=== PATIENT | male | born 1965 | race Caucasian/White ===

== ENCOUNTER 2018-03-27 01:56 | Outpatient (CLI) | payer OTHER, SELFPAY ==
[2018-03-27 08:53] LABS: Cholesterol 252 mg/dL (50-200); HDL Cholesterol 49 mg/dL (40-60); LDL CHOLESTEROL 178 mg/dL (<100); Triglyceride 118 mg/dL (30-150)
== END 2018-03-27 02:16 ==
PROVIDERS: PCP Internal Medicine; Visit Provider Internal Medicine
DX: E78.5 Hyperlipidemia, unspecified (principal)
CPT/HCPCS: 36415; 80061; 83721

== ENCOUNTER 2018-04-10 00:47 | Outpatient (CLI) | payer OTHER, SELFPAY ==
--- NOTE | 2018-04-10 09:01 | MERGE_ITS ---
*[facility]* *[facility]* [address] [place] [address] Date of study: 04/10/2018 Transthoracic Echocardiography M-mode, complete 2D, complete spectral Doppler, and color Doppler *STUDY CONCLUSIONS* Impressions: Bicuspid aortic valve with associated aortopathy. Summary: 1. Left ventricle: The cavity size was normal. Wall thickness was at the upper limits of normal. Systolic function was normal. The estimated ejection fraction was 60-65%. Wall motion was normal; there were no regional wall motion abnormalities. 2. Aortic valve: Bicuspid; mildly thickened leaflets. There was no stenosis. There was no significant regurgitation. 3. Aortic root: The aortic root was normal in size. 4. Ascending aorta: The ascending aorta was mildly dilated at 3.9 cm. 5. Aortic arch: The aortic arch was normal in size. 6. Descending aorta: The descending aorta was normal in size. There was no coarctation. 7. Right ventricle: The cavity size was normal. Wall thickness was normal. Systolic function was normal. *PATIENT PRESENTATION* Height: 172.7cm ((68in) ) S/D Pressure: 110 / 67 Weight: 77.1kg ((169.6lb) ) BSA: 1.94m^2 Test start time: 07:40 AM. Test stop time: 08:40 AM. ORDERING Santino Arce MD REFERRING Santino Arce MD PERFORMING Unknown PERFORMING [facility] SIGN MAINTENANCE RT Zenia (R)(JIN), [facility] *PROCEDURE DATA* Procedure information: The patient was identified by two identifiers. This study was interpreted by [facility]. Pertinent images and digital data are archived for permanent storage and are available for subsequent review. No prior study was available for comparison. Study status: Routine. Transthoracic echocardiography. M-mode, complete 2D, complete spectral Doppler, and color Doppler. A Transthoracic Echocardiogram was performed. Scanning was performed from the parasternal, apical, subcostal, and suprasternal notch acoustic windows. Images were obtained using an [id number] cardiac ultrasound machine. Image quality was adequate. Study completion: The patient tolerated the procedure well. There were no complications. History: PMH: Bicuspid Aortic valve. Congenital heart disease. *CARDIAC ANATOMY* Left ventricle: The cavity size was normal. Wall thickness was at the upper limits of normal. Systolic function was normal. The estimated ejection fraction was 60-65%. Wall motion was normal; there were no regional wall motion abnormalities. Diastolic parameters were normal. Aortic valve: Bicuspid; mildly thickened leaflets. Mobility was not restricted. Doppler: Transvalvular velocity was within the normal range. There was no stenosis. There was no significant regurgitation. VTI ratio of LVOT to aortic valve: 0.69. Valve area (VTI): 2.2cm^2. Indexed valve area (VTI): 1.1cm^2/m^2. Peak velocity ratio of LVOT to aortic valve: 0.72. Valve area (Vmax): 2.3cm^2. Indexed valve area (Vmax): 1.2cm^2/m^2. Mean velocity ratio of LVOT to aortic valve: 0.74. Valve area (Vmean): 2.3cm^2. Indexed valve area (Vmean): 1.2cm^2/m^2. Mean gradient (S): 5mm Hg. Peak gradient (S): 8.2mm Hg. Aorta: Aortic root: The aortic root was normal in size. Ascending aorta: The ascending aorta was mildly dilated at 3.9 cm. Aortic arch: The aortic arch was normal in size. Descending aorta: The descending aorta was normal in size. There was no coarctation. Mitral valve: Structurally normal valve. Mobility was not restricted. Doppler: Transvalvular velocity was within the normal range. There was no evidence for stenosis. There was trivial regurgitation. Valve area by pressure half-time: 4.1cm^2. Indexed valve area by pressure half-time: 2.1cm^2/m^2. Peak gradient (D): 4mm Hg. Left atrium: The atrium was normal in size. Right ventricle: The cavity size was normal. Wall thickness was normal. Systolic function was normal. Pulmonic valve: Structurally normal valve. Doppler: Transvalvular velocity was within the normal range. There was no evidence for stenosis. There was trivial regurgitation. Peak gradient (S): 3mm Hg. Tricuspid valve: Structurally normal valve. Doppler: Transvalvular velocity was within the normal range. There was no evidence for stenosis. There was trivial regurgitation. Pulmonary artery: Pulmonary systolic pressure was within the normal range, in the range of 20mm Hg to 25mm Hg. Right atrium: The atrium was normal in size. Pericardium: There was no pericardial effusion. Systemic veins: Inferior vena cava: Well visualized. The vessel was patent and normal in size. The respirophasic diameter changes were in the normal range (greater than or equal to 50%). Baseline ECG: Sinus bradycardia. Measurements Left ventricle Value Reference LV ID, ED, PLAX 4.6 cm 3.5 - 6.0 LV ID, ES, PLAX 3.4 cm 2.1 - 4.0 LV PW thickness, ED, PLAX 1.1 cm LV end-diastolic volume, 1-p A2C 105 ml LV ejection fraction, 1-p A2C 55 % LV end-diastolic volume, 1-p A4C 100 ml LV ejection fraction, 1-p A4C 65 % LV e', lateral 0.09 m/sec LV E/e', lateral 11 LV e', medial 0.094 m/sec LV E/e', medial 11 LV e', average 0.092 m/sec LV E/e', average 11 Ventricular septum Value Reference IVS thickness, ED, PLAX 1.0 cm LVOT Value Reference LVOT ID, A-P 2.0 cm LVOT area 3.2 cm^2 LVOT peak velocity, S 1.03 m/sec LVOT mean velocity, S 0.81 m/sec LVOT VTI, S 23.4 cm LVOT peak gradient, S 4.3 mm Hg LVOT mean gradient, S 2.8 mm Hg Stroke volume (SV), LVOT DP 74 ml Stroke index (SV/bsa), LVOT DP 38 ml/m^2 Aortic valve Value Reference Aortic valve peak velocity, S 1.4 m/sec Aortic valve mean velocity, S 1.09 m/sec Aortic valve VTI, S 34.0 cm Aortic mean gradient, S 5 mm Hg Aortic peak gradient, S 8.2 mm Hg VTI ratio, LVOT/AV 0.69 Aortic valve area, VTI 2.2 cm^2 Velocity ratio, peak, LVOT/AV 0.72 Aortic valve area, peak velocity 2.3 cm^2 Velocity ratio, mean, LVOT/AV 0.74 Aortic valve area, mean velocity 2.3 cm^2 Aortic valve area/bsa, mean velocity 1.2 cm^2/m^2 Aorta Value Reference Aortic root ID, ED 3.6 cm Ascending aorta ID, A-P, S 3.9 cm RVOT Value Reference RVOT VTI, S 17.6 cm Left atrium Value Reference LA ID, A-P, ES 2.6 cm LA ID/bsa, A-P 1.3 cm/m^2 <=2.2 LA area, ES, A4C 16 cm^2 8.8 - 23.4 LA area, ES, A2C 20 cm^2 LA volume/bsa, ES, 1-p A4C 23 ml/m^2 LA volume, ES, 2-p 49 ml LA volume/bsa, ES, 2-p 26 ml/m^2 LA/aortic root ratio 0.7 Mitral valve Value Reference Mitral E-wave peak velocity 1 m/sec Mitral A-wave peak velocity 0.73 m/sec Mitral deceleration time 183 ms 150 - 230 Mitral pressure half-time 53 ms Mitral peak gradient, D 4 mm Hg Mitral E/A ratio, peak 1.36 Mitral valve area, PHT, DP 4.1 cm^2 Pulmonary veins Value Reference Pulmonary vein peak velocity, S 0.54 m/sec Pulmonary vein peak velocity, D 0.6 m/sec Pulmonary vein velocity ratio, peak, 0.91 S/D Pulmonary vein A-wave reversal peak 0.36 m/sec velocity Tricuspid valve Value Reference Tricuspid regurg peak velocity 2.3 m/sec Tricuspid peak RV-RA gradient 21.3 mm Hg Right atrium Value Reference RA area, ES, A4C 17.5 cm^2 8.3 - 19.5 Pulmonic valve Value Reference Pulmonic peak gradient, S 3 mm Hg Legend: (L) and (H) hillary values outside specified reference range. I have personally reviewed the images and have reviewed and edited the reported findings. Electronically signed by Wilton Saleh 04/10/2018 10:31
== END 2018-04-10 01:07 ==
PROVIDERS: PCP Internal Medicine; Visit Provider Internal Medicine
DX: Q24.8 Other specified congenital malformations of heart (principal); Q23.1 Congenital insufficiency of aortic valve
CPT/HCPCS: 93306

== ENCOUNTER 2020-03-02 01:17 | Outpatient (CLI) | payer OTHER, SELFPAY ==
--- NOTE | 2020-03-02 13:50 | DI.US_ITS ---
APPROVED REPORT EXAM: Comprehensive 2D, Doppler, and color-flow Echocardiogram Patient Location: Out-Patient Pathologist Assistant: Sera Hitchcock RDCS (AE) Indications: Bicuspid Aortic Valve, Dil Ascending Aorta Other Information Study Quality: Good Conclusion Left Ventricle : The left ventricle is normal size. The left ventricular systolic function is normal. The left ventricular ejection fraction is within the normal range. There is normal left ventricular wall thickness. There is normal LV segmental wall motion. LVEF is 60%. Right Ventricle : The right ventricle is normal size. The right ventricular systolic function is norm al. The RVSP is 29.3 mmHg. Atria : The left atrium size is normal. The right atrium size is normal. Aortic Valve : Aortic valve is bicuspid. No aortic regurgitation is present. There is no aortic valvu lar stenosis. Great Vessels : The aortic root is normal in size. The ascending aorta is mildly dilated (3.9cm). Ao rtic arch is normal in caliber. The IVC collapses <50% with inspiration. Compared to study from 04/10/2018, there is no significant change. Wall motion Left Ventricle The left ventricle is normal size. The left ventricular systolic function is normal. The left ventric ular ejection fraction is within the normal range. There is normal left ventricular wall thickness. T here is normal LV segmental wall motion. The left ventricular diastolic function is normal. There is no ventricular septal defect visualized. LVEF is 60%. Right Ventricle The right ventricle is normal size. The right ventricular systolic function is normal. The RVSP is 29 .3 mmHg. Atria The left atrium size is normal. The right atrium size is normal. The interatrial septum is intact wit h no evidence for an atrial septal defect. Aortic Valve Aortic valve is bicuspid. There is no aortic valvular stenosis. No aortic regurgitation is present. Mitral Valve The mitral valve is normal in structure. No evidence of mitral valve stenosis. Mild mitral regurgitat ion. Tricuspid Valve The tricuspid valve is normal in structure. There is no tricuspid valve stenosis. Mild tricuspid regu rgitation. Pulmonic Valve The pulmonary valve is normal in structure. There is no pulmonic valvular stenosis. There is no pulmo nu valvular regurgitation. Great Vessels The aortic root is normal in size. The ascending aorta is mildly dilated (3.9cm). Aortic arch is norm al in caliber. The IVC collapses <50% with inspiration. Pericardium There is no pericardial effusion. 2D Dimensions IVSD d PLAX 0.82 cm M: 0.6-1.2 LV Vol A2C d MOD 120.1 mL LVPW d PLAX 0.82 cm M: 0.6 - 1.2 LV Vol A4C d MOD 92.7 mL LVID d PLAX 4.63 cm M: 4.2 - 5.8 LA vol/ BSA A2C s A-L 31.0 mL/m2 LVDs 3.20 cm M: 2.5 - 4.0 LA vol/ BSA A4C s A-L 15.0 mL/m2 Ao Root d 3.31 cm M: 3.1 - 3.7 LA Vol/ BSA Biplane s A-L 24.0 mL/m2 RA Area A4C 16.19 cm2 LA Area A4C s MOD 12.24 cm2 RA Vol/ BSA A4C s A-L 22.0 mL/m2 LA Area A2C s MOD 19.65 cm2 Ao Asc Diam d 3.94 cm M: 2.6 - 3.4 LV EF A4C MOD 59.1 % LV EF Teichholz 57.2 % LV EF A2C MOD 58.0 % LVEF (Partida's) 58.52 % M: 52 - 72 LV EF Biplane MOD 58.5 % LV Volume 81.37 mL M: 62 - 150 SV 62.21 mL LV Volume Index 43.28 mL/m2 M: 34 - 74 SV Index 33.03 mL/m2 LV Vol Biplane MOD 106.3 mL FS 29.90 % M-Mode TAPSE 3.05 cm (M/F) >1.7 LV Diastology MV E' medial 0.092 (>0.07 m/s) E/A Ratio 1.2 LV E/e MED 9.25 (<14) MV E Vmax 0.85 (0.4-1.3 m/s) MV E' lateral 0.105 (>0.1 m/s) MV A Vmax 0.70 (0.4-1.3 m/s) LV E/e LAT 8.05 (<14) MV E/A Ratio 1.18 MV E/E' medial 9.27 MV E/E' lateral 8.08 Aortic Valve LVOT Area 2.91 cm2 AoV Area Vmax 2.11 cm2 LVOT Vmax 1.18 m/s AoV Area/ BSA (Vmax) 1.12 cm2/m2 LVOT Mean Reed. 0.72 m/s MELECIO Mean Reed. 1.78 cm2 LVOT Peak Grad 5.6 mmHg MELECIO Mean Reed. Index 0.94 cm2/m2 LVOT Mean Grad 2.5 mmHg LVOT VTI 0.261 m LVOT Diam s 1.90 cm AoV Vmax 1.63 m/s Velocity Ratio 0.72 AoV Mean Reed. 1.19 m/s AoV Peak Grad 10.6 mmHg LVOT SV 75.97 mL AoV Mean Grad 6.0 mmHg AoV VTI 0.324 m AoV Area VTI 2.34 cm2 AoV Area/ BSA (VTI) 1.24 cm/m2 Mitral Valve MV DT 229 (160-240 msec) MV PHT 66 msec MV Area PHT 3.31 cm2 Pulmonary Valve PV Vmax 0.94 (0.5-1.5 m/s) RVOT Peak Gr. 2.69 mmHg PV Peak Grad 3.5 mmHg RVOT Mean Gr. 1.20 mmHg PV Mean Grad 1.9 mmHg RVOT VTI 0.179 m PV VTI 0.212 m RVOT Vmax 0.82 m/s Tricuspid Valve TR Peak Grad 21.3 mmHg TR Vmax 2.31 m/s RA Pressure 8.00 mmHg RVSP (TR) 29.3 mmHg
== END 2020-03-02 01:37 ==
PROVIDERS: PCP Internal Medicine; Visit Provider Internal Medicine
DX: I77.810 Thoracic aortic ectasia (principal)
CPT/HCPCS: 93306

== ENCOUNTER 2021-07-22 09:07 | Outpatient (REF) | payer OTHER, SELFPAY ==
[2021-07-22 13:56] LABS: Calculated LDL 198 mg/dL (<100); Cholesterol 263 mg/dL (<200); Glucose 97 mg/dL (74-106); HDL Cholesterol 54 mg/dL (40-60); Triglyceride 57 mg/dL (<150)
== END 2021-07-22 09:08 | disposition home or self-care (01) ==
LOC: NCHCN 09:07
PROVIDERS: PCP Internal Medicine; Visit Provider Family Medicine
DX: E78.5 Hyperlipidemia, unspecified (principal)
CPT/HCPCS: 80061; 82947

== ENCOUNTER 2021-08-24 15:55 | Outpatient (REF) | payer OTHER, SELFPAY ==
[2021-08-24 15:37] LABS: ALT 28 U/L (16-63); AST 22 U/L (15-37)
== END 2021-08-24 15:56 | disposition home or self-care (01) ==
LOC: NCHCN 15:55
PROVIDERS: PCP Internal Medicine; Visit Provider Family Medicine
DX: E78.5 Hyperlipidemia, unspecified (principal)
CPT/HCPCS: 84450; 84460

== ENCOUNTER 2022-03-04 10:13 | Outpatient (REF) | payer OTHER, SELFPAY ==
[2022-03-04 19:58] LABS: ALT 35 U/L (16-63); AST 27 U/L (15-37); Calculated LDL 112 mg/dL (<100); Cholesterol 173 mg/dL (<200); HDL Cholesterol 54 mg/dL (40-60); Triglyceride 39 mg/dL (<150)
== END 2022-03-04 10:14 | disposition home or self-care (01) ==
LOC: NCHCN 10:13
PROVIDERS: PCP Internal Medicine; Visit Provider Family Medicine
DX: E78.5 Hyperlipidemia, unspecified (principal)
CPT/HCPCS: 80061; 84450; 84460

== ENCOUNTER → 2022-05-02 01:35 | Outpatient (CLI) | payer OTHER, SELFPAY ==
--- NOTE | 2022-05-02 14:06 | DI.US_ITS ---
APPROVED REPORT EXAM: Comprehensive 2D, Doppler, and color-flow Echocardiogram Patient Location: Out-Patient [employer] Operator: Sera Hitchcock RDCS (AE) Indications: Bicuspid aortic valve, Ascending aorta dilation Other Information Study Quality: Good Conclusion Normal left ventricular wall thickness and chamber size. Estimated ejection fraction is 60%. Wall m otion is normal Normal right ventricular size and systolic function Both atria are normal in size The aortic valve is bicuspid. There is no aortic stenosis or regurgitation Dilated ascending aorta measuring 4.03 cm Normal estimated right ventricular systolic pressure 25 mmHg Wall motion Left Ventricle The left ventricle is normal size. The left ventricular systolic function is normal. The left ventric ular ejection fraction is within the normal range. There is normal left ventricular wall thickness. T here is normal LV segmental wall motion. There is no ventricular septal defect visualized. LVEF is 60 %. Right Ventricle The right ventricle is normal size. The right ventricular systolic function is normal. The RVSP is 25 .5mmHg. Atria The left atrium size is normal. The right atrium size is normal. The interatrial septum is intact wit h no evidence for an atrial septal defect. Aortic Valve Aortic valve is bicuspid. There is no aortic valvular stenosis. No aortic regurgitation is present. Mitral Valve The mitral valve is normal in structure. No evidence of mitral valve stenosis. Trace mitral regurgita tion. Tricuspid Valve The tricuspid valve is normal in structure. There is no tricuspid valve stenosis. Trace to mild tricu spid regurgitation. Pulmonic Valve The pulmonary valve is normal in structure. There is no pulmonic valvular stenosis. There is no pulmo nu valvular regurgitation. Great Vessels The aortic root is normal in size. The ascending aorta is moderately dilated. Aortic arch is normal i n caliber. IVC is normal in size and collapses >50% with inspiration. Pericardium There is no pericardial effusion. 2D Dimensions IVSD d PLAX 0.91 cm M: 0.6-1.2 LV Vol A2C d MOD 136.3 mL LVPW d PLAX 0.90 cm M: 0.6 - 1.2 LV Vol A4C d MOD 92.8 mL LVID d PLAX 4.53 cm M: 4.2 - 5.8 LA vol/ BSA A2C s A-L 32.9 mL/m2 LVDs 3.00 cm M: 2.5 - 4.0 LA vol/ BSA A4C s A-L 16.4 mL/m2 Ao Root d 3.39 cm M: 3.1 - 3.7 LA Vol/ BSA Biplane s A-L 24.8 mL/m2 RA Area A4C 16.46 cm2 LA Area A4C s MOD 12.68 cm2 RA Vol/ BSA A4C s A-L 24.3 mL/m2 LA Area A2C s MOD 19.18 cm2 Ao Asc Diam d 4.03 cm M: 2.6 - 3.4 LV EF A4C MOD 60.0 % LV EF Teichholz 61.9 % LV EF A2C MOD 60.1 % LVEF (Partida's) 60.30 % M: 52 - 72 LV EF Biplane MOD 60.3 % LV Volume 88.60 mL M: 62 - 150 SV 69.79 mL LV Volume Index 47.12 mL/m2 M: 34 - 74 SV Index 37.05 mL/m2 LV Vol Biplane MOD 115.7 mL FS 33.15 % M-Mode TAPSE 2.77 cm (M/F) >1.7 LV Diastology MV E' medial 0.110 (>0.07 m/s) E/A Ratio 1.3 LV E/e MED 7.10 (<14) MV E Vmax 0.78 (0.4-1.3 m/s) MV E' lateral 0.128 (>0.1 m/s) MV A Vmax 0.60 (0.4-1.3 m/s) LV E/e LAT 6.05 (<14) MV E/A Ratio 1.27 MV E/E' medial 7.11 MV E/E' lateral 6.08 Aortic Valve LVOT Area 3.55 cm2 AoV Area Vmax 2.42 cm2 LVOT Vmax 0.99 m/s AoV Area/ BSA (Vmax) 1.28 cm2/m2 LVOT Mean Reed. 0.68 m/s MELECIO Mean Reed. 2.39 cm2 LVOT Peak Grad 4.0 mmHg MELECIO Mean Reed. Index 1.27 cm2/m2 LVOT Mean Grad 2.2 mmHg LVOT VTI 0.227 m LVOT Diam s 2.10 cm AoV Vmax 1.46 m/s Velocity Ratio 0.67 AoV Mean Reed. 1.02 m/s AoV Peak Grad 8.5 mmHg LVOT SV 80.72 mL AoV Mean Grad 4.7 mmHg AoV VTI 0.316 m AoV Area VTI 2.56 cm2 AoV Area/ BSA (VTI) 1.36 cm/m2 Mitral Valve MV DT 228 (160-240 msec) MV PHT 66 msec MV Area PHT 3.33 cm2 MV VTI 0.381 m MV Area VTI 2.12 (4.0-6.0 cm2) Pulmonary Valve PV Vmax 1.06 (0.5-1.5 m/s) RVOT Peak Gr. 2.43 mmHg PV Peak Grad 4.5 mmHg RVOT Mean Gr. 1.05 mmHg PV Mean Grad 2.5 mmHg RVOT VTI 0.177 m PV VTI 0.225 m RVOT Vmax 0.78 m/s Tricuspid Valve TR Peak Grad 22.4 mmHg TR Vmax 2.37 m/s RA Pressure 3.00 mmHg RVSP (TR) 25.5 mmHg
== END ==
PROVIDERS: PCP Internal Medicine; Visit Provider Family Medicine
DX: I35.2 Nonrheumatic aortic (valve) stenosis with insufficiency (principal); I77.810 Thoracic aortic ectasia
CPT/HCPCS: 93306

== ENCOUNTER 2022-11-28 09:13 | Outpatient (REF) | payer OTHER, SELFPAY ==
[2022-11-28 16:12] LABS: ALT 49 U/L (16-63); AST 32 U/L (15-37); Albumin 4.2 g/dL (3.4-5.0); Alkaline Phosphatase 71 U/L (46-116); Anion Gap 4.4 mmol/L (3-11); BUN 15 mg/dL (7-18); Bilirubin, Total 1.1 mg/dL (0.2-1.0); CO2 31.6 mmol/L (21.0-32.0); CREATININE 0.7 mg/dL (0.70-1.30); Calculated LDL 109 mg/dL (<100); Chloride 102 mmol/L (98-107); Cholesterol 173 mg/dL (<200); Estimated GFR 108.14 (mL/min/1.73m2); Glucose 97 mg/dL (74-106); HDL Cholesterol 55 mg/dL (40-60); Potassium 5.3 mmol/L (3.5-5.1); Sodium 138 mmol/L (136-145); Triglyceride 49 mg/dL (<150)
== END 2022-11-28 09:14 | disposition home or self-care (01) ==
LOC: NCHCN 09:13
PROVIDERS: PCP Internal Medicine; Visit Provider Family Medicine
DX: E78.5 Hyperlipidemia, unspecified (principal); Z00.00 Encounter for general adult medical examination without abnormal findings
CPT/HCPCS: 80053; 80061; 85025

== ENCOUNTER → 2023-04-24 00:16 | Outpatient (CLI) | payer OTHER, SELFPAY ==
--- NOTE | 2023-04-24 | DI.US_ITS ---
APPROVED REPORT EXAM: Comprehensive 2D, Doppler, and color-flow Echocardiogram Patient Location: Out-Patient Naturopathic Doctor: Reg Barron RDCS (AE) Indications: Bicuspid aortic valve Conclusion Normal left ventricular wall thickness and chamber size. Ejection fraction is 60%. Wall motion is n ormal Normal right ventricular size and systolic function Both atria are normal in size Aortic valve is mildly sclerotic and bicuspid. There is no aortic stenosis, no aortic regurgitation There is no additional structural or hemodynamically significant valvular disease Dilated ascending aorta measuring 4.3 cm Estimated right ventricular systolic pressure is 21 mmHg Wall motion Left Ventricle The left ventricle is normal size. The left ventricular systolic function is normal. The left ventric ular ejection fraction is within the normal range. There is normal left ventricular wall thickness. T here is normal LV segmental wall motion. There is no ventricular septal defect visualized. LVEF is 60 %. Right Ventricle The right ventricle is normal size. The right ventricular systolic function is normal. The RVSP is 21 .0 mmHg. Atria The left atrium size is normal. The right atrium size is normal. The interatrial septum is intact wit h no evidence for an atrial septal defect. Aortic Valve Aortic valve is bicuspid. The Aortic valve is mildly sclerotic. There is no aortic valvular stenosis. No aortic regurgitation is present. Mitral Valve The mitral valve is normal in structure. No evidence of mitral valve stenosis. Trace mitral regurgita tion. Tricuspid Valve The tricuspid valve is normal in structure. There is no tricuspid valve stenosis. Mild tricuspid regu rgitation. Pulmonic Valve The pulmonary valve is normal in structure. There is no pulmonic valvular stenosis. There is no pulmo nu valvular regurgitation. Great Vessels Aortic root is mildly dilated. The ascending aorta is moderately dilated. Aortic arch is normal in c aliber. IVC is normal in size and collapses >50% with inspiration. Pericardium There is no pericardial effusion. 2D Dimensions IVSD d PLAX 0.82 cm M: 0.6-1.2 Ao Root d 4.26 cm M: 3.1 - 3.7 LVPW d PLAX 0.70 cm M: 0.6 - 1.2 Ao Asc Diam d 4.30 cm M: 2.6 - 3.4 LVID d PLAX 5.11 cm M: 4.2 - 5.8 LVDs 3.48 cm M: 2.5 - 4.0 LV EF Teichholz 59.6 % FS 31.87 % LV EDV (Teich) 124.5 mL LV ESV (Teich) 50.3 mL Stroke Vol Index (Teich) 39.47 M-Mode TAPSE 2.43 cm (M/F) >1.7 Auto EF LV EDV A4C 122.8 mL LV EDV A2C 148.6 mL LV EDV BP LV ESV A4C 52.3 mL LV ESV A2C 61.9 mL LV ESV BP LVEF(%) A4C 57.4 % LVEF(%) A2C 58.4 % LVEF(%) BP LV SV A4C 70.5 ml LV SV A2C 86.8 ml LV SV BP LV CO A4C 4.0 L/min LV CO A2C 19.2 L/min LV CO BP HR A4C 57.05 BPM HR A2C 220.85 BPM LV EDV Index (BP) LA Volume LA Length A4C 2.8 cm LA Length A2C LA Area A4C s 5.76 cm2 LA Area A2C s LA Vol A4C A-L 9.93 mL LA Vol A2C A-L LA Vol Biplane A-L LA Vol A4C MOD 8.8 mL LA Vol A2C MOD LA Vol BP MOD RA Volume RA Area A4C 5.5 cm2 RA ESV A4C (A-L) 9.0mL RA Vol/BSA A4C A-L RA Length A4C 2.8 cm RA ESV A4C (MOD) 8.0mL LV Diastology MV E' medial 0.100 (>0.07 m/s) MV E Vmax 0.94 (0.4-1.3 m/s) MV E/E' MED 9.41 (<14) MV A Vmax 0.70 (0.4-1.3 m/s) MV E' lateral 0.121 (>0.1 m/s) E/A Ratio 1.3 MV E/E' LAT 7.73 (<14) MV E' Average 0.110 m/s MV E/E'(average) 8.49 Aortic Valve AoV Vmax 1.60 m/s LVOT Vmax 1.16 m/s AoV Peak Grad 10.2 mmHg LVOT Peak Grad 5.4 mmHg AoV Area (Vmax) 2.56 cm2 LVOT VTI 0.275 m AoV VTI 0.393 m LVOT Mean Grad 3.1 mmHg AoV Mean Reed. 1.16 m/s LVOT SV 96.96 mL AoV Mean Grad 6.1 mmHg LVOT Diam s 2.10 cm AoV Area (VTI) 2.46 cm2 Velocity Ratio 0.73 Mitral Valve MV DT 214 (160-240 msec) Pulmonary Valve PV Vmax 0.99 (0.5-1.5 m/s) RVOT Vmax 0.59 m/s PV Peak Grad 3.9 mmHg RVOT Peak Gr. 1.4 mmHg PV Mean Reed 0.71 m/s RVOT VTI 0.137 m PV Mean Grad 2.3 mmHg RVOT Mean Gr. 0.7 mmHg Tricuspid Valve RA Pressure 3.00 mmHg TR Vmax 2.12 m/s TR Peak Grad 17.9 mmHg RVSP (TR) 21.0 mmHg
== END ==
PROVIDERS: PCP Internal Medicine; Visit Provider Family Medicine
DX: I35.0 Nonrheumatic aortic (valve) stenosis (principal)
CPT/HCPCS: 93306

== ENCOUNTER 2024-03-29 00:12 | Outpatient (CLI) | payer OTHER, SELFPAY ==
--- OUTSIDE RECORDS SUMMARY | 2024-03-29 00:14 | XMS_ITS | Encounter Summary ---
Author Organization [facility] Address [facility] [place] [address] Care Team Providers Care Director Regulatory Agency Name Role Phone Darryl Trevizo MD Primary Care Provider [phone] Reason for Visit * Reason Onset Date Comments Medication Refill 01/09/2023 Encounter Details Date Type Department Care Team (Late st Contact Info) Description 01/09/2023 Refill Dermatology at [facility] [address] [place] [address] Colleen Carvalho MD [facility] [address] [place] [address] Social History Tobacco Use Types Packs/Day Years Used Date Smoking Tobacco: Never Smokeless Tobacco: Never Sex and Gender Information Value Date Recorded Sex Assigned at Not on file Gender Identity Not on file Sexual Orientation Not on file documented as of this encounter Plan of Treatment Not on file documented as of this encounter Visit Diagnoses Not on filedocumented in this encounter Care Teams Director Regulatory Agency Relationship Specialty Start Date End Date Darryl Trevizo MD [address] [place] [address] PCP - General Emergency Medicine 06/07/21 documented as of this encounter
--- OUTSIDE RECORDS SUMMARY | 2024-03-29 00:14 | XMS_ITS | Encounter Summary ---
Author Organization [facility] Address [facility] [place] [address] Care Team Providers Care Solar Sales Manager Name Role Phone Darryl Trevizo MD Primary Care Provider [phone] Encounter Details Date Type Department Care Team (Late st Contact Info) Description 09/06/2021 3:30 PM EDT Procedure visit Dermatology at [facility] [address] [place] [address] Colleen Carvalho MD [facility] [address] FEL[address] [place] [address] Dysplastic nevus Social History Tobacco Use Types Packs/Day Years Used Date Smoking Tobacco: Never Smokeless Tobacco: Never Sex and Gender Information Value Date Recorded Sex Assigned at Not on file Gender Identity Not on file Sexual Orientation Not on file documented as of this encounter Patient Instructions * Patient Instructions* Oswald Farah, [facility] - 09/06/2021 4:05 PM EDT Post-Operative Instructions Wound care: The bandage applied today should remain dry and intact for approximately 48 hours. When it is time to remove the bandage, wash your hands, wet the area, and gently remove the dressing. Afterward perform the following daily wound care: Clean the wound with mild soap and warm water, and gently pat dry. Apply Vaseline, Aquaphor or another brand of plain petroleum jelly. Do NOT use peroxide or antibiotic ointment/cream (Neosporin or Bacitracin) on the wound. Cover the wound with a new bandage, such as non-stick Telfa pad and paper tape, or a Band-Aid. Repeat this regimen every day until your sutures are removed. A small amount of yellow drainage is part of the normal healing process. The wound is not considered healed until the drainage stops. It may take up to 3-4 weeks depending on the surgical site. Signsof infection include: increasing redness, drainage, swelling, tenderness, or pain. If you notice any of those symptoms, please contact the clinic. For bleeding or discomfort: If bleeding should occur, hold firm, constant pressure against the wound for 15- 20 minutes (with nopeeking). If bleeding continues, repeat for another 15-20 minutes. If that does not stop the bleeding, call the clinic or go to your local emergency department. For discomfort, you may take acetaminophen (Tylenol), according to package directions. For the first 48 hours, avoid aspirin and ibuprofen (Advil, Motrin), as they increase the risk of bleeding. After 48 hours, it is okay to switch to aspirin or ibuprofen as needed. Activity restrictions: It is important that you avoid strenuous and/or vigorous activities, heavy lifting (more than 5-10 pounds, the equivalent of 1 gallon of milk) and bending for a period of 3 weeks. Suture removal: The sutures should be removed in 12-14 days. Contact information: After 5 PM, and on weekends and holidays, please call the hospital at [phone] and ask for the Motorcycle Maker On-Call. Provider: Colleen Nair MD Supervisor Vegetable Farming: PILAR Weinberg documented in this encounter Progress Notes * Colleen Nair MD - 09/06/2021 3:30 PM EDT PATIENT: Terrance Mei : 1965 DATE OF SERVICE: 09/06/2021 PROCEDURE: Excision of dysplastic melanocytic nevus on left upper arm. Informed Consent Discussion: A discussion took place between the patient and me regarding the risks, benefits, alternatives, andrationale for the above named procedure. The patient understand(s) all of the above and has agreed to proceed with the procedure. 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 Local anesthesia consisting of 1% lidocaine, epinephrine 1:100,000 was used to infiltrate the skin. After adequate anesthesia was obtained, an incision with a No. 15 blade was made and the lesion was removed with a minimum of 4mm margins. Hemostasis was achieved. Wound edges were re-approximated in a layered fashion utilizing Vicryl 3-0 (size, suture) subcutaneous sutures and Prolene 3-0 (size, suture) superficial sutures. The patient tolerated the procedure well. A pressure dressing was placed. Specimen(s): Sent to dermatopathology. Complication(s): None. Estimated Blood Loss: Minimal Final wound length: 4.5cm All counts correct at the end of the procedure. Patient tolerated the procedure well. Impression/ Plan: Wound care was discussed and post-operative written instructions given to the patient. Return to clinic in 12-14 days for suture removal. Medications given: none Author: Colleen Nair MD 09/06/2021 5:25 PM * Colleen Nair MD - 09/06/2021 3:30 PM EDT Margins clear, left upper arm. No further treatment needed. Benign result released to pt with instructions to call if any questions. documented in this encounter Plan of Treatment Not on file documented as of this encounter Procedures Procedure Name Priority Date/Time Associated Diagnosis Comments SPECIMEN TO PATHOLOGY Routine 09/06/2021 5:19 PM EDT Dysplastic nevus SURGICAL PATHOLOGY REPORT Routine 09/06/2021 3:30 PM EDT documented in this encounter Results * Specimen to Pathology (09/06/2021 5:19 PM EDT) AP Specimen 09/06/2021 5:19 PM EDT 09/06/2021 5:19 PM EDT Narrative [facility] - 09/06/2021 5:19 PM EDT Specimen requisition ordered. ??Separate Pathology report to follow Colleen Carvalho MD PATHOLOGY/CYTOLOGY ORDERABLES [facility] [place] [address] * Surgical Pathology Report (09/06/2021 3:30 PM EDT) Final Diagnosis [id number] ? Location: [facility] The signing pathologist has (i) examined the relevant preparation(s) for the specimen(s) and (ii) rendered or confirmed the diagnosis(es). . ?Surgical Pathology DIAGNOSIS Left upper arm, skin excision: - ??Negative for atypical melanocytic proliferation - ??Reparative changes consistent with previous operative site - Background ??actinic keratosis-type changes Electronically signed by: ?Faustina Waggoner MD Verified: ??09/08/2021 17:31 ??Dermatopatholog ist Performed at: ??-[facility] Dept. of Pathology, [place], [place] SPECIMEN(S) SUBMITTED A - Left upper arm, skin excision (1) CLINICAL INFORMATION 7 mm x 3 mm biopsy proven dysplastic nevus with moderate atypia (see previous path [id number]) SPECIMEN PROCESSING A - Labeled/Fixative: Patient demographics, formalin. Quantity/Size: ??Single, 3.9 x 1.2 x 0.5 cm. Tissue Description: Non-oriented, wrinkled craven-goyal elliptical skin excision with a central 0.7 x 0.4 cm ovoid, slightly depressed glistening pink-red scar/previous biopsy site. Sections/Processi ng: Inked and entirely submitted in 4 cassettes as follows: ?A1: ??tips ?A2-A4: ??Body (A3 = previous biopsy site/scar). ??shb 09/08/2021 5:31 PM EDT [facility] SPECIMEN FROM SKIN / Unknown 09/06/2021 3:30 PM EDT 09/06/2021 3:30 PM EDT Colleen Carvalho MD PATHOLOGY/CYTOLOGY ORDERABLES Performing Organization Address City/State/[facility] Co de Phone Number [facility] [place] [address] documented in this encounter Visit Diagnoses Diagnosis Dysplastic nevus Benign neoplasm of skin, site unspecified documented in this encounter Care Teams Solar Sales Manager Relationship Specialty Start Date End Date Darryl Trevizo MD [address] [place] [address] PCP - General Emergency Medicine 06/07/21 documented as of this encounter
--- OUTSIDE RECORDS SUMMARY | 2024-03-29 00:14 | XMS_ITS | Encounter Summary ---
Author Organization [facility] Address [facility] [place] [address] Care Team Providers Care Biostatistician Name Role Phone Darryl Trevizo MD Primary Care Provider [phone] Reason for Visit * Reason Onset Date Comments Medication Refill 05/01/2023 Encounter Details Date Type Department Care Team (Late st Contact Info) Description 05/01/[address] [facility] [address] [place] [address] Colleen Carvalho MD [facility] DR FEL[address] [place] [address] Social History Tobacco Use Types Packs/Day Years Used Date Smoking Tobacco: Never Smokeless Tobacco: Never Sex and Gender Information Value Date Recorded Sex Assigned at Not on file Gender Identity Not on file Sexual Orientation Not on file documented as of this encounter Miscellaneous Notes * Telephone Encounter - Julienne Gibson LPN - 05/01/2023 8:07 AM EST Sent to incorrect pharmacy documented in this encounter Plan of Treatment Not on file documented as of this encounter Visit Diagnoses Not on filedocumented in this encounter Care Teams Biostatistician Relationship Specialty Start Date End Date Darryl Trevizo MD [address] [place] [address] PCP - General Emergency Medicine 06/07/21 documented as of this encounter
--- OUTSIDE RECORDS SUMMARY | 2024-03-29 00:14 | XMS_ITS | Encounter Summary ---
Author Organization [facility] Address [facility] [place] [address] Care Team Providers Care Automatic Casting Machine Operator Name Role Phone Darryl Trevizo MD Primary Care Provider [phone] Reason for Visit * Reason Onset Date Comments Medication Refill 04/27/2023 Encounter Details Date Type Department Care Team (Late st Contact Info) Description 04/27/2023 Refill Dermatology at [facility] [address] [place] [address] Colleen Carvalho MD [facility] [address] [place] [address] Social History Tobacco Use Types Packs/Day Years [...] on filedocumented in this encounter Care Teams Automatic Casting Machine Operator Relationship Specialty Start Date End Date Darryl Trevizo MD [address] [place] [address] PCP - General Emergency Medicine 06/07/21 documented as of this encounter
--- OUTSIDE RECORDS SUMMARY | 2024-03-29 00:14 | XMS_ITS | Clinical Summary ---
Author Organization [facility] [place] [address] Care Team Providers Care Electrophysiology Scientist Name Role Phone Darryl Trevizo MD Primary Care Provider [phone] Allergies No known active allergies Medications Medication Sig Dispensed Refills Start Date End Date Status multivitamin Capsule Take 1 capsule by mouth daily. Active ascorbic acid (VITAMIN C ORAL) Take by mouth. Acti ve acetaminophen (Tylenol) 500 mg Tablet Take 1,000 mg by mouth every 6 hours as needed for Pain. Active docosahexaenoic acid/epa (FISH OIL ORAL) Take by mouth. Active atorvastatin (Lipitor) 20 mg Tablet TAKE ONE TABLET BY MOUTH EVERY NIGHT 09/04/2021 Active triamcinolone (Kenalog) 0.1 % Ointment Apply topically to affected area(s) twice daily for up to 2 weeks. Take 1 week off and then repeat cycle as needed. 80 g 05/01/2023 Active Social History Tobacco Use Types Packs/Day Years Used Date Smoking Tobacco: Never Smokeless Tobacco: Never Sex and Gender Information Value Date Recorded Sex Assigned at Not on file Gender Identity Not on file Sexual Orientation Not on file Plan of Treatment Health Maintenance Due Date Last Done Comments CT Colonography 1965 Colonoscopy 1965 Colorectal Cancer Screening 1965 FIT DNA 1965 FIT 1965 Sigmoidoscopy (10 year) with FIT yearly 1965 Sigmoidoscopy 1965 HIV screen 1984 Hepatitis C Screening 1984 Hepatitis B vaccine (0-59 yrs) (1) 1985 Tetanus/Diphtheria/Pertussis Vaccines (1 - Tdap) 07/02 Zoster vaccine (1 of 2) 2016 Advance Directive 2021 Covid-19 Vaccine ( season) 2024 Influenza (Flu) vaccine (1 o f 1 - Influenza standard series) 02/18/2024 Care Teams Electrophysiology Scientist Relationship Specialty Start Date End Date Darryl Trevizo MD [address] [place] [address] PCP - General Emergency Medicine 06/07/21
--- OUTSIDE RECORDS SUMMARY | 2024-03-29 00:14 | XMS_ITS | Encounter Summary ---
Author Organization [facility] Address [facility] [place] [address] Care Team Providers Care Plate Maker Name Role Phone Darryl Trevizo MD Primary Care Provider [phone] Encounter Details Date Type Department Care Team (Late st Contact Info) Description 09/09/2021 Abstract Dermatology at [facility] [address] [place] [address] Colleen Carvalho MD [facility] DR FEL[address] [place] [address] Social History Tobacco Use Types Packs/Day Years [...] on filedocumented in this encounter Care Teams Plate Maker Relationship Specialty Start Date End Date Darryl Trevizo MD [address] [place] [address] PCP - General Emergency Medicine 06/07/21 documented as of this encounter
--- OUTSIDE RECORDS SUMMARY | 2024-03-29 00:14 | XMS_ITS | Encounter Summary ---
Author Organization [facility] Address [facility] [place] [address] Care Team Providers Care Hand Carver Name Role Phone Darryl Trevizo MD Primary Care Provider [phone] Encounter Details Date Type Department Care Team (Late st Contact Info) Description 07/07/2021 Telephone Dermatology at [facility] [address] [place] [address] Alysha Mariee LPN Social History Tobacco Use Types Packs/Day Years Used Date Smoking Tobacco: Never Smokeless Tobacco: Never Sex and Gender Information Value Date Recorded Sex Assigned at Not on file Gender Identity Not on file Sexual Orientation Not on file documented as of this encounter Miscellaneous Notes * Telephone Encounter - Alysha Mariee LPN - 07/07/2021 3:46 PM EST I spoke with Terrance and I updated him on his appt change for 09/06/2021 @ 3:00 PM arrival for a 3:30PM appt He will call if it is an issue when he gets closer to the time and day. documented in this encounter Plan of Treatment Not on file documented as of this encounter Visit Diagnoses Not on filedocumented in this encounter Care Teams Hand Carver Relationship Specialty Start Date End Date Darryl Trevizo MD [address] [place] [address] PCP - General Emergency Medicine 06/07/21 documented as of this encounter
--- OUTSIDE RECORDS SUMMARY | 2024-03-29 00:14 | XMS_ITS | Encounter Summary ---
Author Organization [facility] Address [facility] [place] [address] Care Team Providers Care Almond Grinder Name Role Phone Darryl Trevizo MD Primary Care Provider [phone] Encounter Details Date Type Department Care Team (Late st Contact Info) Description 09/03/2021 Telephone Dermatology at [facility] [address] [place] [address] Marleny Mariee LPN Social History Tobacco Use Types Packs/Day Years Used Date Smoking Tobacco: Never Smokeless Tobacco: Never Sex and Gender Information Value Date Recorded Sex Assigned at Not on file Gender Identity Not on file Sexual Orientation Not on file documented as of this encounter Miscellaneous Notes * Telephone Encounter - Marleny Mariee LPN - 09/03/2021 2:34 PM EDT 09/03/2021 @ 3:01 PM. Pt called back and we discussed the procedure and all questions answered. 09/03/2021 @ 2:38 PM. I called and l/m for a return call to discuss his procedure. Telephone Encounter Pre-Procedure Screening and Review Terrance Mei is a 56 y.o. male is scheduled for treatment of a moderate AN on the Left upperarm Review of Procedure(s) Discussed with patient this procedure, the risks of excision, including but not limited to the following: ?? Near term: pain, bleeding/hematoma, bruising, infection ?? Long-term: recurrence, nerve damage, cosmesis (scar, dyspigmentation, scar spread), and keloid/hypertrophic scar development. Discussed post-procedure wound care and recommended limitations in activities including curtailed aerobic activities and limited weight lifting to less than 10 lbs for approximately three weeks afterthe procedure to minimize risk for falling and/or disruption of the wound. For head wounds, do not recommend head gear for approximately three weeks after the procedure to minimize risk for disruption of the wound. Recommend patient be accompanied by someone to help drive home, if able. Patient understands sutures will be removed in 10-14 days; this can be done by this office but may be done by PCP, if the PCP is willing to do so. Patient verbally understands and elects to continue with planned procedure above. Pre-Procedure Review Blood thinner N Defibrillator or Pacemaker N Prosthetic devices/implants and dates N Take antibiotics prior to procedures N Allergies N Plan Patient to return for procedure above. Pre-Procedure Antibiotics: not required / N Note initiated by MARLENY MARIEE LPN documented in this encounter Plan of Treatment Not on file documented as of this encounter Visit Diagnoses Not on filedocumented in this encounter Care Teams Almond Grinder Relationship Specialty Start Date End Date Darryl Trevizo MD [address] [place] [address] PCP - General Emergency Medicine 06/07/21 documented as of this encounter
--- OUTSIDE RECORDS SUMMARY | 2024-03-29 00:14 | XMS_ITS | Encounter Summary ---
Author Organization [facility] Address [facility] [place] [address] Care Team Providers Care Phytopathology Teacher Name Role Phone Darryl Trevizo MD Primary Care Provider [phone] Encounter Details Date Type Department Care Team ([facility] st Contact Info) Description 01/23/2023 10:30 AM EDT Office Visit Dermatology at [facility] [address] [place] [address] Colleen Gill MD [facility] DR [facility] [place] [address] Kaci Dee, RN Dermatitis Social History Tobacco Use Types Packs/Day Years Used Date Smoking Tobacco: Never Smokeless Tobacco: Never Sex and Gender Information Value Date Recorded Sex Assigned at Not on file Gender Identity Not on file Sexual Orientation Not on file documented as of this encounter Progress Notes * Arvind Betts MD - 01/23/2023 10:30 AM EDT Images from the original note were not included. DEPARTMENT OF DERMATOLOGY Medical Dermatology Clinic Provider: Colleen Gill MD Patient's preferred name Terrance Preferred contact method for results [x]Phone: cell []myD-H []Letter Detailed phone message OK? Yes Are there any other people with whom we may discuss your care? No Past Medical History Date, location, treatment Melanoma No Dysplastic nevi 06/07/2021: left upper arm, AN with moderate atypia s/p excision 09/06/2021 SCC No BCC No AKs No UV Exposure & Protection Sun Protection: SPF 15+ Other relevant past medical history Family History Details Melanoma No NMSC No Other relevant family history No Social History Occupation: Hobbies: Other: Pre-Procedure Screening Details Allergy to lidocaine, epinephrine, Dermabond, chlorhexidine, or adhesives No Bleeding disorder or blood thinners No Pacemaker, defibrillator, deep brain stimulator, cochlear implant No History of Present Illness: Terrance Mei is a 57 y.o. Patient returns to clinic today for the following: Patient has erythematous itchy papules scattered throughout upper extremities, chest, back, and thighs. Ongoing. Topical steroid prescribed at last visit helps them resolve but new ones continue to occur. Last visit at Dermatology: 01/09/2023 Last visit with this provider: 01/09/2023 Medications: Reviewed in eD-H Allergies: Reviewed in eD-H Skin Examination: Focused skin examination of the arms, chest, back, thighs was normal with the exception of the findings below. Assessment/Plan #. Anastacio's Disease vs Pityrosporum Folliculitis vs papular eczema - Erythematous papules some witherosions on the forearms, upper back, and few on chest, upper thighs - Recommended a skin biopsy. After discussion of potential risks (scarring, bleeding, infection), patient agreed to proceed. - Patient denies known allergies to lidocaine and epinephrine. - Continue Rx triamcinolone (Kenalog) 0.1% ointment: Apply topically to affected area(s) twice daily for up to 2 weeks. Take 1 week off and then repeat cycle as needed. Procedure: Skin punch biopsy. Location: R medial knee Time of procedure: 10:59 AM Discussed indications for the procedure and expectations including risks and benefits. Verbal consent obtained. Time out performed. Skin prepped with alcohol. Local anesthesia with 1% xylocaine, 1/100,000 epinephrine. A 4 mm punch biopsy to the level of the subcutis was performed. Specimen submitted to Pathology. Wound closed with monofilament suture. There were no complications; patient tolerated the procedure well. Wound dressed. Post-procedure expectations (including discomfort management), wound care and activity restrictions reviewed. - Follow-up based on pathology results. - Suture removal: 10-14 days. Can have done closer to home. Figure 1 Photo(s) taken and charted with patient's verbal consent. Other: N/A RTC: PRN [x]Note routed to bilingual secretary []Recall placed in scheduling system []Appointment scheduled at checkout Patient seen in conjunction with: Arvind Betts MD Resident in Dermatology [facility] I performed the above scribed service and agree with the accuracy of the documentation in this encounter. Reviewed and signed by: Colleen Gill MD Dermatology [facility] * Colleen Gill MD - 01/23/2023 10:30 AM EDT I directly supervised the resident during this office visit. The resident physician presented the history and physical exam to me. I then saw and examined this patient with the resident. We reviewed the history and pertinent details and I confirmed the physical exam findings. I agree with the details of the history and physical exam as documented in the resident physician's note. Colleen Gill MD ([place]), FAAD Staff Physician [facility] Dermatology * Colleen Gill MD - 01/23/2023 10:30 AM EDT Called patient to discuss: Med list is atorvastatin, multivitamin, vitamin C, fish oil, tylenol occasionally, ibuprofen. He note he started atorvastatin about 1 year ago and otherwise takes ibuprofen ~weekly. Suggest stopping atorvastatin since pathology suggests a drug reaction. He asked about food as well and I suggested keeping a food/symptom diary to assess. We discussed it takes about 4-6 weeks to see an effect after stopping medication. He will contact his PCP about stopping atorvastatin and I asked him to let me know how it goes. documented in this encounter Miscellaneous Notes * Addendum Note - Colleen Gill MD - 01/23/2023 10:30 AM EDTAddended by: COLLEEN GILL on: 01/24/2023 07:43 AM Modules accepted: Level of Service documented in this encounter Plan of Treatment Not on file documented as of this encounter Procedures Procedure Name Priority Date/Time Associated Diagnosis Comments SPECIMEN TO PATHOLOGY Routine 01/23/2023 11:06 AM EDT Dermatitis SURGICAL PATHOLOGY REPORT Routine 01/23/2023 10:54 AM EDT documented in this encounter Results * Specimen to Pathology (01/23/2023 11:06 AM EDT) AP Specimen 01/23/2023 11:0 6 AM EDT 01/23/2023 11:06 AM EDT Narrative [facility] - 01/23/2023 11:06 AM EDT Specimen requisition ordered. ??Separate Pathology report to follow Colleen Gill MD PATHOLOGY/CYTOLOGY ORDERABLES Performing Organization Address City/State/[facility] Co de Phone Number [facility] [place] [address] * Surgical Pathology Report (01/23/2023 10:54 AM EDT) Final Diagnosis [id number] ? Location: [facility] The signing pathologist has (i) examined the relevant preparation(s) for the specimen(s) and (ii) rendered or confirmed the diagnosis(es). . ?Surgical Pathology DIAGNOSIS Right medial knee, skin punch biopsy: - Superficial and deep perivascular dermatitis with eosinophils and scattered neutrophils (see discussion) Electronically signed by: ?Laureen RUIZ, PhD, Teja Ma Verified: ??01/31/2023 17:42 ??Dermatopathologis t, Bone & Soft Tissue Pathologist Performed at: ??-[facility] Dept. of Pathology, [place] [address] Cylinder Head Assembler: Naila Rolle MD, FCAP, ??CLIA Certificate: [id number] DISCUSSION Sections demonstrate skin with minimal spongiosis. There is a moderately dense superficial and deep perivascular lymphocytic infiltrate with eosinophils and occasional neutrophils. The inflammation extends into the interstitium and subcutis. The histologic features, while non-specific, raise a differential that includes a dermal hypersensitivity reaction to an arthropod bite or drug. Similar findings may be seen in urticaria and in a resolving spongiotic dermatitis. Findings diagnostic of Anastacio disease or Pityrosporum folliculitis are not identified in this biopsy. Clinical correlation is recommended. ADDITIONAL STUDIES Multiple deeper levels were examined. No fungi are seen in PAS-reacted sections. SPECIMEN(S) SUBMITTED a - Right medial knee, skin punch (1) CLINICAL INFORMATION Walton's disease versus Pityrosporum folliculitis versus papular eczema: Erythematous papules some with erosions on the forearms, upper back, and few on chest, upper thighs and feet SPECIMEN PROCESSING A - Labeled/Fixative: Patient demographics, formalin. Quantity/Size: ??Single, 0.4 x 0.4 cm, excised to a depth of 0.6 cm. Tissue Description: Punch goyal-pink hairbearing skin. Sections/Processing : Bisected and entirely submitted in 1 cassette labeled A1. ??nrl 01/31/2023 5:42 PM EDT [facility] SPECIMEN FROM SKIN / Unknown 01/23/2023 10:54 AM EDT 01/23/2023 10:54 AM EDT Arvind Betts MD PATHOLOGY/CYTO LOGY ORDERABLES [facility] [place] [address] [facility] [place] [address] documented in this encounter Visit Diagnoses Diagnosis Dermatitis Contact dermatitis and other eczema, due to unspecified cause documented in this encounter Care Teams Phytopathology Teacher Relationship Specialty Start Date End Date Darryl Trevizo MD [address] [place] [address] (work) PCP - General Emergency Medicine 06/07/21 documented as of this encounter
--- OUTSIDE RECORDS SUMMARY | 2024-03-29 00:14 | XMS_ITS | Encounter Summary ---
Author Organization [facility] [place] [address] Care Team Providers Care Account Services Specialist Name Role Phone Darryl Trevizo MD Primary Care Provider Encounter Details Date Type Department Care Team (Latest Contact Info) Description 01/23/2023 Travel Social History Tobacco Use Types Packs/Day Years [...] on filedocumented in this encounter Care Teams Account Services Specialist Relationship Specialty Start Date End Date Darryl Trevizo MD [address] [place] [address] PCP - General Emergency Medicine 06/07/21 documented as of this encounter
--- OUTSIDE RECORDS SUMMARY | 2024-03-29 00:14 | XMS_ITS | Encounter Summary ---
Author Organization [facility] [place] [address] Care Team Providers Care Can Technician Name Role Phone Darryl Trevizo MD Primary Care Provider [phone] Encounter Details Date Type Department Care Team (Latest Contact Info) Description 09/06/2021 3:00 PM EDT Clinical Support Dermatology at [facility] [address] [place] [address] Colleen Carvalho MD [facility] DR [facility] [address] Visit for suture removal Social History Tobacco Use Types Packs/Day Years Used Date Smoking Tobacco: Never Smokeless Tobacco: Never Sex and Gender Information Value Date Recorded Sex Assigned at Not on file Gender Identity Not on file Sexual Orientation Not on file documented as of this encounter Progress Notes * Kaci Dee LPN - 09/06/2021 3:00 PM EDT Images from the original note were not included. Pre Procedure Nurse Intake: Provider: MD Terrance Kline is a 56 y.o. male presents to the clinic today for a procedure visit. Pre surgery Vital signs: No data found. Reviewed surgery expectations and after visit wound care instructions with patient. Patient verbalized understanding. Confirmed location with patient. Photo(s) were taken and charted with patient consent: Prepared patient for surgery. Kaci Dee LPN documented in this encounter Plan of Treatment Not on file documented as of this encounter Visit Diagnoses Diagnosis Visit for suture removal Encounter for removal of sutures documented in this encounter Care Teams Can Technician Relationship Specialty Start Date End Date Darryl Trevizo MD [address] [place] [address] PCP - General Emergency Medicine 06/07/21 documented as of this encounter
--- OUTSIDE RECORDS SUMMARY | 2024-03-29 00:14 | XMS_ITS | Encounter Summary ---
Author Organization [facility] [place] [address] Care Team Providers Care Tank Truck Milk Receiver Name Role Phone Darryl Trevizo MD Primary Care Provider [phone] Encounter Details Date Type Department Care Team ([facility] st Contact Info) Description 01/09/2023 9:45 AM EDT Office Visit Dermatology at [facility] [address] [place] [address] Colleen Carvalho MD [facility] [address] [place] [address] Dermatofibroma; Rosacea; Dermatitis Social History Tobacco Use Types Packs/Day Years Used Date Smoking Tobacco: Never Smokeless Tobacco: Never Sex and Gender Information Value Date Recorded Sex Assigned at Not on file Gender Identity Not on file Sexual Orientation Not on file documented as of this encounter Progress Notes * Colleen Carvalho MD - 01/09/2023 9:45 AM EDT Images from the original note were not included. DEPARTMENT OF DERMATOLOGY Medical Dermatology Clinic Provider: Colleen Carvalho MD Patient's preferred name Terrance Preferred contact [...] returns to clinic today for the following: - bumps on arms, abdomen, back, legs. First appeared ~ 2 months ago. Intermittently itchy. Uses dove soap. Denies using a lotion. Patient has tried hydrocortisone and benadryl which he reports not helpful. Denies starting any new medications. Last visit at Dermatology: 09/06/2021 Last visit with this provider: 09/06/2021 Medications: Reviewed in eD-H Allergies: Reviewed in eD-H Skin Examination: Focused skin examination of the face, back, chest, abdomen, upper and lower extremities was normal with the exception of the findings below. Assessment/Plan # Dermatitis: Ddx: Junedale's Disease vs Pityrosporum Folliculitis (less likely) vs papular eczema - Erythematous papules some with erosions on the forearms, upper back, and few on chest, upper thighs,and feet - Discussed treating empirically with topical steroid. - Offered biopsy, will defer at this time due to patient going away on vacation. - Start Rx triamcinolone (Kenalog) 0.1% ointment: Apply topically to affected area(s) twice daily for up to 2 weeks. Take 1 week off and then repeat cycle as needed. - Pt leaving from here to go to [place], he will call with his preferred pharmacy # Dermatofibroma - Firm papule, centrally raised and sclerotic, with peripheral hyperpigmentation and dimpling with lateral pressure on the left rodas - Discussed that these are benign fibrous (scar-like) areas that often occur after trauma, such as insect bites. No treatment necessary. # Rosacea / Sun exposure - Diffuse erythema and dilated telangiectasias on the central face. - Reviewed common triggers: alcohol, caffeine, exercise, spicy foods, sun exposure, and extreme temperatures. - Discussed treatment options, including topicals and cosmetic laser procedures. No quotes given. - Patient declined topical treatment at this time. Figure 1 Photo(s) taken and charted with patient's verbal consent. Other: N/A RTC: 2-3 weeks for f/u []Note routed to administrative secretary []Recall placed in scheduling system [x]Appointment scheduled at checkout Scribe attestation: PILAR Weinberg has performed the documentation for this encounter in the presence of and acting as a scribe for Colleen Carvalho MD. I performed the above scribed service and agree with the accuracy of the documentation in this encounter. Reviewed and signed by: Colleen Carvalho MD Dermatology [facility] documented in this encounter Plan of Treatment Not on file documented as of this encounter Visit Diagnoses Diagnosis Dermatofibroma Benign neoplasm of skin, site unspecified Rosacea Dermatitis Contact dermatitis and other eczema, due to unspecified cause documented in this encounter Care Teams Tank Truck Milk Receiver Relationship Specialty Start Date End Date Darryl Trevizo MD [address] [place] [address] PCP - General Emergency Medicine 06/07/21 documented as of this encounter
--- OUTSIDE RECORDS SUMMARY | 2024-03-29 00:14 | XMS_ITS | Encounter Summary ---
Author Organization [facility] [place] [address] Care Team Providers Care Push Bench Operator Helper Name Role Phone Darryl Trevizo MD Primary Care Provider [phone] Encounter Details Date Type Department Care Team ([facility] st Contact Info) Description 06/07/2021 10:30 AM EST Office Visit Dermatology at [facility] [address] [place] [address] Colleen Carvalho MD [facility] [address] FEL[facility] [place] [address] Mercado angioma; Lentigines; Multiple benign nevi of upper extremity, lower extremity, and trunk; Actinic keratosis; Anastacio's disease; Neoplasm of unspecified behavior of bone, soft tissue, and skin Social History Tobacco Use Types Packs/Day Years Used Date Smoking Tobacco: Never Smokeless Tobacco: Never Sex and Gender Information Value Date Recorded Sex Assigned at Not on file Gender Identity Not on file Sexual Orientation Not on file documented as of this encounter Progress Notes * Colleen Miller MD - 06/07/2021 10:30 AM EST Images from the original note were not included. DEPARTMENT OF DERMATOLOGY Medical Dermatology Clinic Provider: Colleen Miller MD Patient's preferred name Terrance Preferred contact method for results [x]Phone: cell []myD-H []Letter Detailed phone message OK? Yes Are there any other people with whom we may discuss your care? No Past Medical History Date, location, treatment Melanoma No Dysplastic nevi No SCC No BCC No AKs No UV [...] of Present Illness: Terrance Mei is a 55 y.o. Patient is new and self-referred to the clinic for a full skin cancer screening: -flakey area on right forehead present for 1 year +. Asymptomatic. No previous treatment. -bumps on right abdomen present for 1 year +. Asymptomatic. No previous treatment. Medications: Reviewed in eD-H Allergies: Reviewed in eD-H Skin Examination: Full skin examination: Patient asked to undress to their comfort level. Verbalized that the provider's preference is that patient remove all clothing and that the provider will not examine areas patient elects to keep covered. Examination of the scalp, hair, head, face, ears, neck, chest, axillae, abdomen, back, buttocks, and upper and lower extremities was normal with the exception of the findings below. Genitalia not examined. Assessment/Plan # Neoplasm of unspecified behavior - Joint decision to proceed with biopsy for diagnostic clarification - Procedure: Skin shave biopsy Location: left upper arm DDX: Nevus vs atypical nevus- 5 mm reticule brown macule with asymmetrical border on left upper arm The patient's verbal consent for shave biopsy was obtained. Risk of incomplete removal, recurrence,bleeding, scar, and pain reviewed. Alcohol preparation was used. Anesthesia obtained with 1% lidocaine with epinephrine. A shave biopsy was obtained and the specimen was sent to pathology for histologic evaluation. Vaseline and bandage were applied. Wound care was reviewed. # Actinic Keratosis-0.2-0.3cm scaly irregular pink papule(s) on the left nasal sidewall x1 - Discussed the natural history and etiology of actinic keratoses including the premalignant potential of these lesions. -Discussed treatment options. Procedure Note: Procedure: Destruction of lesion(s) with cryotherapy. Number: 1 Location: as above Discussed procedure and expectations including risks (including risk of hypopigmentation) and benefits. Verbal consent obtained. Frozen with LN2, 15-30 second thaw time, TWICE. There were no complications; the patient tolerated the procedure well. Post-procedure expectations and wound care were reviewed. # Seborrheic keratoses - goyal/brown waxy stuck-on papules and plaques on the face, trunk and extremities. Including forehead. - Reassured of the benign nature of these lesions - No treatment needed # Mercado angiomas - scattered on the trunk and extremities are bright red smooth papules. - Reassured of the benign nature of these lesions. No treatment needed. # Solar lentigines - 0.3-0.6cm light-brown evenly pigmented, well-demarcated macules in a photodistributed pattern on the face, trunk and extremities. - Recommend diligent sun protection (hats/shade/clothing/sunscreen) - Discussed warning signs of skin cancer # Melanocytic nevi - Scattered medium-brown macules and papules on the head, trunk, and extremities. - Reassured of benign appearance on exam today. 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 The disease is found primarily in middle-aged to elderly white men - High-potency topical corticosteroids with combination of a vitamin D analog can be used Plan: -Monitor -Use OTC hydrocortisone cream as needed. Offered prescription but pt declines Images Photo(s) taken by Colleen Miller MD. with patient's verbal permission for use for clinical and education purposes. Other: ??? Sun protection discussed (protective clothing and SPF30+ broad-spectrum sunscreen) RTC: 1 year FSE []Note routed to police department secretary [x]Recall placed in scheduling system []Appointment scheduled at checkout Scribe attestation: Kaci Dee LPN has performed the documentation for this encounter in the presence of and acting as a scribe for Colleen Miller MD. I performed the above scribed service and agree with the accuracy of the documentation in this encounter. Reviewed and signed by: Colleen Miller MD Dermatology [facility] * Colleen Miller MD - 06/07/2021 10:30 AM EST Left upper arm, moderate AN, extending to peripheral and deep margins. Recommend excision. Alysha, can you please let him know? Thanks! * Alysha Mariee LPN - 06/07/2021 10:30 AM EST Called and l/m with details for pt on his cell # as it showed ok to in the chart note. I asked him to return a call to schedule and discuss an questions. * Alysha Mariee LPN - 06/07/2021 10:30 AM EST Spoke with Chin. HE was updated on his AN and was given an appt for 08/23/2021 but he would like to push it out. He will wait for Jackie to call and see if it can be changed. documented in this encounter Plan of Treatment Not on file documented as of this encounter Procedures Procedure Name Priority Date/Time Associated Diagnosis Comments SURGICAL PATHOLOGY REPORT Routine 06/07/2021 11:10 AM EST SPECIMEN TO PATHOLOGY Routine 06/07/2021 11:10 AM EST Neoplasm of unspecified behavior of bone, soft tissue, and skin documented in this encounter Results * Surgical Pathology Report (06/07/2021 11:10 AM EST) Final Diagnosis [id number] ? Location: [facility] The signing pathologist has (i) examined the relevant preparation(s) for the specimen(s) and (ii) rendered or confirmed the diagnosis(es). . ?Surgical Pathology DIAGNOSIS Left upper arm, skin shave biopsy: - ??Lentiginous compound dysplastic ??melanocytic ??nevus with moderate junctional atypia and ??features of congenital onset, extending to the peripheral and deep specimen edges Electronically signed by: ?Joey RUIZ, PhD, Antonette Verified: ??06/20/2021 12:28 ??Dermatopathologist Performed at: ??-[facility] Dept. of [place]ology, [place], [place] ADDITIONAL STUDIES Immunohistochemistry Studies: Formalin-fixed, paraffin-embedded tissue sections are studied using the polymer technique with appropriate positive and negative controls. ?These IHC studies provide the pathologist with adjunctive diagnostic information. Antibody specificity has been verified by testing antibodies on a series of in-house tissues with known immunohistochemical performance characteristics. The clinical interpretation of any antibody positive staining or its absence is evaluated within the context of clinical presentation, morphology, histopathological criteria and other diagnostic tests. Block ? Antibody ?Result (Positive/Negative) A1 ? Melan-A red ?Highlights ?? melanocytes A1 ? PRAME red ?Negative SPECIMEN(S) SUBMITTED A - left upper arm, skin shave biopsy (1) CLINICAL INFORMATION 5 mm reticulated brown macule with asymmetrical borders on left upper arm. DDX: Nevus vs atypical nevus SPECIMEN PROCESSING A - Labeled/Fixative: Patient demographics, formalin. Quantity/Size: ??Single, 0.8 x 0.7 cm. Tissue Description: Ovoid, nonoriented white skin shave of a 0.7 x 0.4-0.2 cm irregular dark brown macule. Sections/Processing: Inked, trisected and entirely submitted in 1 cassette labeled A1. ??shb 06/20/2021 12:28 PM EST [facility] SPECIMEN FROM SKIN / Unknown 06/07/2021 11:10 AM EST 06/07/2021 11:10 AM EST Colleen Carvalho MD PATHOLOGY/CYTOLOGY ORDERABLES Performing Organization Address City/[facility]/[place]IP [place] [address] * Specimen to Pathology (06/07/2021 11:10 AM EST) AP Specimen 06/07/2021 11:1 0 AM EST 06/07/2021 11:10 AM EST Narrative [facility] - 06/07/2021 11:10 AM EST Specimen requisition ordered. ??Separate Pathology report to follow Colleen Carvalho MD PATHOLOGY/CYTOLOGY ORDERABLES Performing Organization Address City/[facility] [place] [address] documented in this encounter Visit Diagnoses Diagnosis Mercado angioma Nevus, non-neoplastic Lentigines Other dyschromia Multiple benign nevi of upper extremity, lower extremity, and trunk Actinic keratosis Anastacio's disease Other specified dermatoses Neoplasm of unspecified behavior of bone, soft tissue, and skin documented in this encounter Care Teams Push Bench Operator Helper Relationship Specialty Start Date End Date Darryl Trevizo MD [address] [place] [address] PCP - General Emergency Medicine 06/07/21 documented as of this encounter
--- OUTSIDE RECORDS SUMMARY | 2024-03-29 00:14 | XMS_ITS | Encounter Summary ---
Author Organization [facility] [place] [address] Care Team Providers Care Licensed Life And Health Agent Name Role Phone Darryl Trevizo MD Primary Care Provider [phone] Encounter Details Date Type Department Care Team (Latest Contact Info) Description 01/08/2023 Travel Social History Tobacco Use Types Packs/Day [...] on filedocumented in this encounter Care Teams Licensed Life And Health Agent Relationship Specialty Start Date End Date Darryl Trevizo MD [address] [place] [address] PCP - General Emergency Medicine 06/07/21 documented as of this encounter
--- NOTE | 2024-03-29 12:30 | DI.US_ITS ---
APPROVED REPORT EXAM: Comprehensive 2D, Doppler, and color-flow Echocardiogram Patient Location: Out-Patient Visual Designer: Sera Hitchcock RDCS (AE) Indications: Thoracic aorta ectasia Other Information Study Quality: Good Conclusion Normal left ventricular wall thickness and chamber size. Ejection fraction is 60%. Wall motion is n ormal Normal right ventricular size and function Both atria are normal in size Aortic valve is bicuspid and mildly sclerotic without stenosis or regurgitation Ascending aorta measures 4.2 cm Estimated right ventricular systolic pressure is 28 mmHg Wall motion Left Ventricle The left ventricle is normal size. The left ventricular systolic function is normal. The left ventric ular ejection fraction is within the normal range. There is normal left ventricular wall thickness. T here is normal LV segmental wall motion. There is no ventricular septal defect visualized. LVEF is 60 %. Right Ventricle The right ventricle is normal size. The right ventricular systolic function is normal. Atria The left atrium size is normal. The right atrium size is normal. The interatrial septum is intact wit h no evidence for an atrial septal defect. Aortic Valve Aortic valve is bicuspid. The Aortic valve is sclerotic. There is no aortic valvular stenosis. No aor tic regurgitation is present. Mitral Valve The mitral valve is normal in structure. No evidence of mitral valve stenosis. Trace mitral regurgita tion. Tricuspid Valve The tricuspid valve is normal in structure. There is no tricuspid valve stenosis. Trace tricuspid reg urgitation. The RVSP is 27.6 mmHg. Pulmonic Valve The pulmonary valve is normal in structure. There is no pulmonic valvular stenosis. Trace pulmonic re gurgitation. Great Vessels The aortic root is normal in size. The ascending aorta is dilated Aortic arch is not well visualized. moderately dilated. IVC is normal in size and collapses >50% with inspiration. Pericardium There is no pericardial effusion. 2D Dimensions IVSD d PLAX 0.83 cm M: 0.6-1.2 Ao Root d 3.75 cm M: 3.1 - 3.7 LVPW d PLAX 0.83 cm M: 0.6 - 1.2 Ao Asc Diam d 4.20 cm M: 2.6 - 3.4 LVID d PLAX 4.62 cm M: 4.2 - 5.8 LVDs 3.16 cm M: 2.5 - 4.0 LV EF Teichholz 59.7 % FS 31.69 % LV EDV (Teich) 98.3 mL LV ESV (Teich) 39.6 mL M-Mode TAPSE 3.01 cm (M/F) >1.7 Auto EF LV EDV A4C 106.5 mL LV EDV A2C 127.6 mL LV EDV BP 117.1 mL LV ESV A4C 45.8 mL LV ESV A2C 46.6 mL LV ESV BP 46.3 mL LVEF(%) A4C 57.0 % LVEF(%) A2C 63.5 % LVEF(%) BP 60.4 % LV SV A4C 60.8 ml LV SV A2C 81.0 ml LV SV BP 70.8 ml LV CO A4C 3.5 L/min LV CO A2C 4.6 L/min LV CO BP 4.1 L/min HR A4C 57.88 BPM HR A2C 56.77 BPM LV EDV Index (BP) LA Volume LA Length A4C 4.3 cm LA Length A2C 4.1 cm LA Area A4C s 11.57 cm2 LA Area A2C s 12.48 cm2 LA Vol A4C A-L 26.65 mL LA Vol A2C A-L 31.91 mL LA Vol Biplane A-L 29.6 mL LA Vol/BSA A4C A-L LA Vol/BSA A2C A-L LA Vol/BSA BP A-L 15.7 mL/m2 LA Vol A4C MOD 24.8 mL LA Vol A2C MOD 29.1 mL LA Vol BP MOD 27.1 mL RA Volume RA Area A4C 14.9 cm2 RA ESV A4C (A-L) 37.1mL RA Vol/BSA A4C A-L RA Length A4C 5.1 cm RA ESV A4C (MOD) 34.9mL LV Diastology MV E' medial 0.108 (>0.07 m/s) MV E Vmax 1.05 (0.4-1.3 m/s) MV E/E' MED 9.71 (<14) MV A Vmax 0.80 (0.4-1.3 m/s) MV E' lateral 0.118 (>0.1 m/s) E/A Ratio 1.3 MV E/E' LAT 8.90 (<14) MV E' Average 0.113 m/s MV E/E'(average) 9.29 Aortic Valve AoV Vmax 1.83 m/s LVOT Vmax 1.03 m/s AoV Peak Grad 13.4 mmHg LVOT Peak Grad 4.2 mmHg AoV Area (Vmax) 2.19 cm2 LVOT VTI 0.234 m AoV VTI 0.438 m LVOT Mean Grad 2.5 mmHg AoV Mean Reed. 1.28 m/s LVOT SV 91.34 mL AoV Mean Grad 7.5 mmHg LVOT Diam s 2.20 cm AoV Area (VTI) 2.08 cm2 AV Regurg Peak Gr. 13.39 mmHg Velocity Ratio 0.56 Mitral Valve MV DT 202 (160-240 msec) MV Vmax TIPS 1.15 m/s MV Mean Grad 1.4 (<2mmHg) MV VTI 0.319 m Pulmonary Valve PV Vmax 0.91 (0.5-1.5 m/s) RVOT Vmax 0.78 m/s PV Peak Grad 3.3 mmHg RVOT Peak Gr. 2.4 mmHg PV Mean Reed 0.66 m/s RVOT VTI 0.185 m PV Mean Grad 1.9 mmHg RVOT Mean Gr. 1.4 mmHg Tricuspid Valve RA Pressure 3.00 mmHg TR Vmax 2.48 m/s TV S' 0.17 m/s TR Peak Grad 24.5 mmHg RVSP (TR) 27.6 mmHg
== END 2024-03-29 00:32 ==
LOC: DI 00:13
PROVIDERS: PCP Family Medicine; Visit Provider Family Medicine
DX: I77.810 Thoracic aortic ectasia (principal)
CPT/HCPCS: 93306

== ENCOUNTER 2024-04-26 01:19 | Outpatient (CLI) | payer OTHER, SELFPAY ==
--- OUTSIDE RECORDS SUMMARY | 2024-04-26 01:34 | XMS_ITS | Clinical Summary ---
Author Organization [facility] [place] [address] Care Team Providers Care Sales And Distribution Clerk Name Role Phone Darryl Trevizo MD Primary Care Provider [phone] Allergies No known active allergies Medications Medication [...] - Influenza standard series) 02/18/2024 Care Teams Sales And Distribution Clerk Relationship Specialty Start Date End Date Darryl Trevizo MD [address] [place] [address] PCP - General Emergency Medicine 06/07/21
--- OUTSIDE RECORDS SUMMARY | 2024-04-26 01:34 | XMS_ITS | Encounter Summary ---
Author Organization [facility] [place] [address] Care Team Providers Care Magnetic Resonance Imaging Coordinator Name Role Phone Darryl Trevizo MD Primary Care Provider [phone] Encounter Details Date Type Department Care Team [...] on filedocumented in this encounter Care Teams Magnetic Resonance Imaging Coordinator Relationship Specialty Start Date End Date Darryl Trevizo MD [address] [place] [address] PCP - General Emergency Medicine 06/07/21 documented as of this encounter
--- OUTSIDE RECORDS SUMMARY | 2024-04-26 01:34 | XMS_ITS | Encounter Summary ---
Author Organization [facility] [place] [address] Care Team Providers Care Tool Crib Manager Name Role Phone Darryl Trevizo MD Primary Care Provider [phone] Encounter Details Date Type Department Care Team ([facility] st Contact Info) Description 01/09/2023 9:45 AM EDT Office Visit Dermatology at [facility] [address] [place] [address] Colleen Carvalho MD [facility] DR FEL[facility] [place] [address] Dermatofibroma; Rosacea; Dermatitis Social History Tobacco Use [...] the findings below. Assessment/Plan # Dermatitis: Ddx: [place]'s Disease vs Pityrosporum Folliculitis (less likely) vs [...] Pt leaving from here to go to [place], he will call with his preferred pharmacy [...] 2-3 weeks for f/u []Note routed to city secretary []Recall placed in scheduling system [x]Appointment scheduled at checkout Scribe attestation: PILAR Weinberg has performed the documentation for this encounter in the presence of and acting as a scribe for Colleen Carvalho MD. I performed the above scribed service and agree with the accuracy of the documentation in this encounter. Reviewed and signed by: Colleen Carvalho MD Dermatology [facility] documented in this encounter Plan of Treatment Not on file documented as of this encounter Visit Diagnoses Diagnosis Dermatofibroma Benign neoplasm of skin, site unspecified Rosacea Dermatitis Contact dermatitis and other eczema, due to unspecified cause documented in this encounter Care Teams Tool Crib Manager Relationship Specialty Start Date End Date Darryl Trevizo MD [address] [place] [address] PCP - General Emergency Medicine 06/07/21 documented as of this encounter
--- OUTSIDE RECORDS SUMMARY | 2024-04-26 01:34 | XMS_ITS | Encounter Summary ---
Author Organization [facility] Address [facility] [place] [address] Care Team Providers Care Web Manager Name Role Phone Darryl Trevizo MD Primary Care Provider [phone] Reason for Visit * Reason Onset Date Comments Medication Refill 05/01/2023 Encounter Details Date Type Department Care Team (Late st Contact Info) Description 05/01/2023 Refill Dermatology at [facility] [address] [place] [address] Colleen Carvalho MD [facility] DR [facility]EL[address] [place] [address] Social History Tobacco Use Types Packs/Day Years [...] on filedocumented in this encounter Care Teams Web Manager Relationship Specialty Start Date End Date Darryl Trevizo MD [address] [place] [address] PCP - General Emergency Medicine 06/07/21 documented as of this encounter
--- OUTSIDE RECORDS SUMMARY | 2024-04-26 01:34 | XMS_ITS | Encounter Summary ---
Author Organization [facility] Address [facility] [place] [address] Care Team Providers Care Clinical Support Specialist Name Role Phone Darryl Trevizo MD Primary Care Provider [phone] Reason for Visit * Reason Onset Date Comments Medication Refill 01/09/2023 Encounter Details Date Type Department Care Team (Late st Contact Info) Description 01/09/2023 Refill Dermatology at [facility] [address] [place] [address] Colleen Carvalho MD [facility] DR [place] [address] Social History Tobacco Use Types Packs/Day Years [...] on filedocumented in this encounter Care Teams Clinical Support Specialist Relationship Specialty Start Date End Date Darryl Trevizo MD [address] [place] [address] PCP - General Emergency Medicine 06/07/21 documented as of this encounter
--- OUTSIDE RECORDS SUMMARY | 2024-04-26 01:34 | XMS_ITS | Encounter Summary ---
Author Organization [facility] Address [facility] [place] [address] Care Team Providers Care Blender Name Role Phone Darryl Trevizo MD Primary Care Provider [phone] Encounter Details Date Type Department Care Team ([facility] st Contact Info) Description 01/23/2023 10:30 AM EDT Office Visit Dermatology at [facility] [address] [place] [address] Colleen Gill MD [facility] DR [place] [address] Kaci Dee, RN Dermatitis Social History Tobacco [...] Other: N/A RTC: PRN [x]Note routed to foreign banknote teller trader []Recall placed in scheduling system []Appointment scheduled at checkout Patient seen in conjunction with: Arvind Betts MD Resident in Dermatology [facility] I performed the above scribed service and agree with the accuracy of the documentation in this encounter. Reviewed and signed by: Colleen Gill MD Dermatology [facility] * Colleen Gill MD - 01/23/2023 10:30 [...] Colleen Gill MD ([place]), FAAD Staff Physician [facility] [place] * Colleen Gill MD - 01/23/2023 [...] AM EDT 01/23/2023 11:06 AM EDT Narrative [facility] - 01/23/2023 11:06 AM EDT Specimen requisition ordered. ??Separate Pathology report to follow Colleen Gill MD PATHOLOGY/CYTOLOGY ORDERABLES Performing Organization Address City/State/[facility] Co de Phone Number [facility] [place] [address] * Surgical Pathology Report (01/23/2023 10:54 AM EDT) Final Diagnosis [id number] ? Location: [facility] The signing pathologist has [...] Bone & Soft Tissue Pathologist Performed at: ??-[facility] [place]ology, [place] [address] Human Resource Advisor: Naila Rolle MD, FCAP, ??CLIA Certificate: [id number] DISCUSSION Sections demonstrate skin with minimal spongiosis. [...] medial knee, skin punch (1) CLINICAL INFORMATION [place]'s disease versus Pityrosporum folliculitis versus papular eczema: [...] labeled A1. ??nrl 01/31/2023 5:42 PM EDT [facility] SPECIMEN FROM SKIN / Unknown 01/23/2023 10:54 AM EDT 01/23/2023 10:54 AM EDT Arvind Betts MD PATHOLOGY/CYTO LOGY ORDERABLES [facility] [place] [address] [facility] [place] [address] documented in this encounter Visit Diagnoses Diagnosis Dermatitis Contact dermatitis and other eczema, due to unspecified cause documented in this encounter Care Teams Blender Relationship Specialty Start Date End Date Darryl Trevizo MD [address] [place] [address] (work) PCP - General Emergency Medicine 06/07/21 documented as of this encounter
--- OUTSIDE RECORDS SUMMARY | 2024-04-26 01:34 | XMS_ITS | Encounter Summary ---
Author Organization [facility] Address [facility] [place] [address] Care Team Providers Care Clay Dry Press Operator Name Role Phone Darryl Trevizo MD Primary Care Provider [phone] Reason for Visit * Reason Onset Date Comments Medication Refill 04/27/2023 Encounter Details Date Type Department Care Team (Late st Contact Info) Description 04/27/2023 Refill Dermatology at [facility] [address] [place] [address] Colleen Carvalho MD [facility] [address] [place] [address] Social History Tobacco Use Types Packs/Day Years [...] on filedocumented in this encounter Care Teams Clay Dry Press Operator Relationship Specialty Start Date End Date Darryl Trevizo MD [address] [place] [address] PCP - General Emergency Medicine 06/07/21 documented as of this encounter
--- OUTSIDE RECORDS SUMMARY | 2024-04-26 01:35 | XMS_ITS | Encounter Summary ---
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 I performed the above scribed service and agree with the accuracy of the documentation in this encounter. Reviewed and signed by: Colleen Miller MD Dermatology [facility] * Colleen Miller MD - 06/07/2021 [...] Report (06/07/2021 11:10 AM EST) Final Diagnosis [id number] ? Location: [facility] The signing pathologist has [...] Antonette Verified: ??06/20/2021 12:28 ??Dermatopathologist Performed at: ??-[facility] Dept. of Pathology, [place], [place] ADDITIONAL STUDIES Immunohistochemistry Studies: Formalin-fixed, paraffin-embedded [...] labeled A1. ??shb 06/20/2021 12:28 PM EST [facility] SPECIMEN FROM SKIN / Unknown 06/07/2021 11:10 AM EST 06/07/2021 11:10 AM EST Colleen Carvalho MD PATHOLOGY/CYTOLOGY ORDERABLES Performing Organization Address City/[facility]/[place] [address] * Specimen to Pathology (06/07/2021 11:10 AM EST) AP Specimen 06/07/2021 11:1 0 AM EST 06/07/2021 11:10 AM EST Narrative [facility] - 06/07/2021 11:10 AM EST Specimen requisition ordered. ??Separate Pathology report to follow Colleen Carvalho MD PATHOLOGY/CYTOLOGY ORDERABLES Performing Organization Address City/[facility] [place] [place] [address] documented in this encounter Visit Diagnoses Diagnosis Mercado angioma Nevus, non-neoplastic Lentigines Other dyschromia Multiple benign nevi of upper extremity, lower extremity, and trunk Actinic keratosis Anastacio's disease Other specified dermatoses Neoplasm of unspecified behavior of bone, soft tissue, and skin documented in this encounter Care Teams Site Damage Prevention Technician Relationship Specialty Start Date End Date Darryl Trevizo MD [address] [place] [address] PCP - General Emergency Medicine 06/07/21 documented as of this encounter
--- OUTSIDE RECORDS SUMMARY | 2024-04-26 01:35 | XMS_ITS | Encounter Summary ---
Author Organization [facility] Address [facility] [place] [address] Care Team Providers Care Measurement Technician Name Role Phone Darryl Trevizo MD Primary Care Provider [phone] Encounter Details Date Type Department Care Team (Late st Contact Info) Description 09/03/2021 Telephone Dermatology at [facility] [address] [place] [id number] Marleny Mariee LPN Social History Tobacco Use [...] on filedocumented in this encounter Care Teams Measurement Technician Relationship Specialty Start Date End Date Darryl Trevizo MD [address] [place] [address] PCP - General Emergency Medicine 06/07/21 documented as of this encounter
--- OUTSIDE RECORDS SUMMARY | 2024-04-26 01:35 | XMS_ITS | Encounter Summary ---
Author Organization [facility] [place] [address] Care Team Providers Care Corporate Real Estate Manager Name Role Phone Darryl Trevizo MD Primary Care Provider [phone] Encounter Details Date Type Department Care Team [...] on filedocumented in this encounter Care Teams Corporate Real Estate Manager Relationship Specialty Start Date End Date Darryl Trevizo MD [address] [place] [address] PCP - General Emergency Medicine 06/07/21 documented as of this encounter
--- OUTSIDE RECORDS SUMMARY | 2024-04-26 01:35 | XMS_ITS | Encounter Summary ---
Author Organization [facility] Address [facility] [place] [address] Care Team Providers Care Cupola Liner Name Role Phone Darryl Trevizo MD Primary Care Provider [phone] Encounter Details Date Type Department Care Team (Late st Contact Info) Description 09/06/2021 3:30 PM EDT Procedure visit Dermatology at [facility] [address] [place] [address] Colleen Carvalho MD [facility] [address] [place] [address] Dysplastic nevus Social History Tobacco Use Types Packs/Day Years Used Date Smoking Tobacco: Never Smokeless Tobacco: Never Sex and Gender Information Value Date Recorded Sex Assigned at Not on file Gender Identity Not on file Sexual Orientation Not on file documented as of this encounter Patient Instructions * Patient Instructions* Oswald Farah, [facility] - 09/06/2021 4:05 PM EDT Post-Operative [...] and holidays, please call the hospital at [phone] and ask for the Family Law Attorney On-Call. Provider: Colleen Nair MD Return Clerk: PILAR Weinberg documented in this encounter Progress [...] of congenital onset Surgeon: Colleen Nair MD Return Clerk: PILAR Weinberg Details of Procedure: The patient [...] PM EDT 09/06/2021 5:19 PM EDT Narrative [facility] - 09/06/2021 5:19 PM EDT Specimen requisition ordered. ??Separate Pathology report to follow Colleen Carvalho MD PATHOLOGY/CYTOLOGY ORDERABLES [facility] [place] [address] * Surgical Pathology Report (09/06/2021 3:30 PM EDT) Final Diagnosis [id number] ? Location: [facility] The signing pathologist has (i) examined the relevant preparation(s) for the specimen(s) and (ii) rendered or confirmed the diagnosis(es). . ?Surgical Pathology DIAGNOSIS Left upper arm, skin excision: - ??Negative for atypical melanocytic proliferation - ??Reparative changes consistent with previous operative site - Background ??actinic keratosis-type changes Electronically signed by: ?Faustina Waggoner MD Verified: ??09/08/2021 17:31 ??Dermatopatholog ist Performed at: ??-[facility] [place], [place], [place] SPECIMEN(S) SUBMITTED A - Left upper arm, skin excision (1) CLINICAL INFORMATION 7 mm x 3 mm biopsy proven dysplastic nevus with moderate atypia (see previous path [id number]) SPECIMEN PROCESSING A - Labeled/Fixative: Patient demographics, [...] biopsy site/scar). ??shb 09/08/2021 5:31 PM EDT [facility] SPECIMEN FROM SKIN / Unknown 09/06/2021 3:30 PM EDT 09/06/2021 3:30 PM EDT oClleen Carvalho MD PATHOLOGY/CYTOLOGY ORDERABLES Performing Organization Address City/State/[facility] Co de Phone Number [facility] [place] [address] documented in this encounter Visit Diagnoses Diagnosis Dysplastic nevus Benign neoplasm of skin, site unspecified documented in this encounter Care Teams Cupola Liner Relationship Specialty Start Date End Date Darryl Trevizo MD [address] [place] [address] PCP - General Emergency Medicine 06/07/21 documented as of this encounter
--- OUTSIDE RECORDS SUMMARY | 2024-04-26 01:35 | XMS_ITS | Encounter Summary ---
Author Organization [facility] [place] [address] Care Team Providers Care Deputy Administrator Name Role Phone Darryl Trevizo MD Primary Care Provider [phone] Encounter Details Date Type Department Care Team (Latest Contact Info) Description 09/06/2021 3:00 PM EDT Clinical Support Dermatology at [facility] [address] [place] [address] Colleen Carvalho MD [facility] DR [address] [place] [address] Visit for suture removal Social History Tobacco [...] sutures documented in this encounter Care Teams Deputy Administrator Relationship Specialty Start Date End Date Darryl Trevizo MD [address] [place] [address] PCP - General Emergency Medicine 06/07/21 documented as of this encounter
--- OUTSIDE RECORDS SUMMARY | 2024-04-26 01:35 | XMS_ITS | Encounter Summary ---
Author Organization [facility] Address [facility] [place] [address] Care Team Providers Care Auto Former Machine Operator Name Role Phone Darryl Trevizo MD Primary Care Provider [phone] Encounter Details Date Type Department Care Team (Late st Contact Info) Description 09/09/[address] [facility] [address] [place] [address] Colleen Carvalho MD [facility] [address] [place] [address] Social History Tobacco Use Types Packs/Day Years [...] on filedocumented in this encounter Care Teams Auto Former Machine Operator Relationship Specialty Start Date End Date Darryl Trevizo MD [address] [place] [address] PCP - General Emergency Medicine 06/07/21 documented as of this encounter
--- OUTSIDE RECORDS SUMMARY | 2024-04-26 01:35 | XMS_ITS | Encounter Summary ---
Author Organization [facility] Address [facility] [place] [address] Care Team Providers Care Manager Field Sales Name Role Phone Darryl Trevizo MD Primary Care Provider Encounter Details Date Type Department Care Team (Late st Contact Info) Description 07/07/2021 Telephone Dermatology at [facility] [address] [place] [address] Alysha Mariee LPN Social History Tobacco Use [...] on filedocumented in this encounter Care Teams Manager Field Sales Relationship Specialty Start Date End Date Darryl Trevizo MD [address] [place] [address] PCP - General Emergency Medicine 06/07/21 documented as of this encounter
[2024-04-26 07:49] LABS: ALT 31 U/L (16-63); AST 25 U/L (15-37); Albumin 4.1 g/dL (3.4-5.0); Alkaline Phosphatase 67 U/L (46-116); Anion Gap 8.5 mmol/L (3-11); BUN 19 mg/dL (7-18); CO2 26.5 mmol/L (21.0-32.0); CREATININE 0.8 mg/dL (0.70-1.30); Calcium 9.2 mg/dL (8.5-10.1); Calculated LDL 97 mg/dL (<100); Chloride 103 mmol/L (98-107); Cholesterol 172 mg/dL (<200); Estimated GFR 103.22 (mL/min/1.73m2); Glucose 97 mg/dL (74-106); HDL Cholesterol 61 mg/dL (40-60); Potassium 4.3 mmol/L (3.5-5.1); Sodium 138 mmol/L (136-145); Total Protein 8.7 g/dL (6.4-8.2); Triglyceride 71 mg/dL (<150)
== END 2024-04-26 01:20 | disposition home or self-care (01) ==
PROVIDERS: PCP Family Medicine; Visit Provider Family Medicine
DX: Q23.1 Congenital insufficiency of aortic valve (principal); E78.5 Hyperlipidemia, unspecified
CPT/HCPCS: 36415; 80053; 80061

== ENCOUNTER 2025-03-20 20:04 | Outpatient (REF) | payer OTHER, SELFPAY ==
[2025-03-20 14:46] LABS: HCT 39.7 % (40.0-50.0); HGB 13.6 g/dL (13.5-17.5); MCH 30.8 pg (27.0-33.0); MCHC 34.3 % (32.0-36.0); MCV 90 fL (80-95); MPV 9.4 fL (8.0-11.0); Platelet Count 247 10^3/uL (130-400); RBC 4.42 10^6/uL (4.36-5.78); RDW 11.8 % (11.8-14.1); RDW-SD 38.3 fL; WBC 6.52 10^3/uL (4.4-10.8)
[2025-03-20 14:56] LABS: ESR 16 mm/hr (0-20)
[2025-03-20 15:30] LABS: ALT 26 U/L (16-63); AST 23 U/L (15-37); Albumin 4.2 g/dL (3.4-5.0); Alkaline Phosphatase 76 U/L (46-116); Anion Gap 13.3 mmol/L (3-11); BUN 8 mg/dL (7-18); Bilirubin, Total 0.8 mg/dL (0.2-1.0); CO2 23.7 mmol/L (21.0-32.0); Calcium 9.0 mg/dL (8.5-10.1); Calculated LDL 93 mg/dL (<100); Chloride 99 mmol/L (98-107); Cholesterol 157 mg/dL (<200); Estimated GFR 118.23 (mL/min/1.73m2); Glucose 97 mg/dL (74-106); HDL Cholesterol 55 mg/dL (>or=40); Potassium 4.6 mmol/L (3.5-5.1); Sodium 136 mmol/L (136-145); Total Protein 7.8 g/dL (6.4-8.2); Triglyceride 49 mg/dL (<150)
[2025-03-21 11:35] LABS: Lyme Ab w Rflx to Lyme Confirm Negative (Negative)
[2025-03-22 14:42] LABS: B. miyamotoi PCR Negative (Negative); Babesia divergens/MO-1 Negative (Negative); Ehrlichia muris eauclairensis Negative (Negative)
== END 2025-03-20 20:05 | disposition home or self-care (01) ==
LOC: NCHCN 20:04
PROVIDERS: PCP Family Medicine; Visit Provider Family Medicine
DX: A69.20 Lyme disease, unspecified (principal)
CPT/HCPCS: 80053; 80061; 85027; 85652; 87798; 86618

== ENCOUNTER 2025-03-25 01:16 | Outpatient (CLI) | payer OTHER, SELFPAY ==
--- NOTE | 2025-03-25 06:15 | DI.RAD_ITS ---
Exam(s) XR SHOULDER RT COMPLETE 2+V EXAM: XR SHOULDER RT COMPLETE 2+V CLINICAL HISTORY: eval R shoulder pain,m25.511. TECHNIQUE: 2D digital imaging was performed of the right shoulder. Five images were obtained. AP, Grashey, Y-view and axillary views were obtained. COMPARISON: No exams were available for comparison FINDINGS: BONES: No acute fracture is present. No bony destructive lesion is seen. JOINTS: No dislocation present. There are mild degenerative changes seen at the acromioclavicular joint. Moderate degenerative changes are seen at the glenohumeral joint. The findings are characterized by joint space narrowing and osteophytes. SOFT TISSUE: Normal. 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 DATA REPOSITORY: RADIATION DOSE DELIVERED:
--- NOTE | 2025-03-25 06:15 | DI.RAD_ITS ---
Exam(s) XR SHOULDER LT COMPLETE 2+V EXAM: XR SHOULDER LT COMPLETE 2+V CLINICAL HISTORY: eval L shoulder pain,m25.512. TECHNIQUE: 2D digital imaging was performed of the left shoulder. Five images were obtained. AP, Grashey, Y-view and axillary views were obtained. COMPARISON: No exams were available for comparison FINDINGS: BONES: No acute fracture is present. No bony destructive lesion is seen. JOINTS: No dislocation present. Moderate degenerative changes are seen at the acromioclavicular joint. There are mild degenerative changes seen at the glenohumeral joint. SOFT TISSUE: Normal. IMPRESSION: Degenerative changes seen at both the acromioclavicular and glenohumeral joints. DATA REPOSITORY: RADIATION DOSE DELIVERED:
== END 2025-03-25 01:36 ==
PROVIDERS: PCP Family Medicine; Visit Provider Student in an Organized Health Care Education/Training Program
DX: M25.511 Pain in right shoulder (principal); M25.512 Pain in left shoulder; M19.012 Primary osteoarthritis, left shoulder; M19.011 Primary osteoarthritis, right shoulder
CPT/HCPCS: 73030

== ENCOUNTER 2025-04-11 11:18 | Outpatient (REF) | payer OTHER, SELFPAY ==
[2025-04-11 15:38] LABS: C-Reactive Protein < 0.50 mg/dL (<or=0.5)
== END 2025-04-11 11:19 | disposition home or self-care (01) ==
LOC: NCHCN 11:18
PROVIDERS: PCP Family Medicine; Visit Provider Family Medicine
DX: M25.50 Pain in unspecified joint (principal)
CPT/HCPCS: 86200; 86038; 86140; 86431

== ENCOUNTER → 2025-05-17 12:29 | Outpatient (CLI) | payer OTHER, SELFPAY ==
--- NOTE | 2025-05-17 | DI.RAD_ITS ---
Exam(s) XR TOE LT FIFTH EXAM: XR TOE LT FIFTH CLINICAL HISTORY: toe pain - left ICD-10:M79.675. TECHNIQUE: 2D digital imaging was performed. Three images were obtained. COMPARISON: No exams were available for comparison FINDINGS: BONES: There is an oblique fracture of the middle phalanx of the 5th toe. This is best appreciated on the lateral view. The fracture extends into the distal interphalangeal joint. No bony destructive lesion is seen. JOINTS: No dislocation present. SOFT TISSUE: There is soft tissue swelling of the 5th toe. IMPRESSION: 1. Oblique intra-articular fracture involving the middle phalanx of the left 5th toe. 2. The preliminary [facility] report was reviewed. DATA REPOSITORY: RADIATION DOSE DELIVERED:
--- NOTE | 2025-05-17 13:21 | DI.[facility]_ITS ---
PROCEDURE INFORMATION: Exam: XR Left Toe(s) Exam date and time: 05/17/2025 12:53 PM Age: 59 years old Clinical indication: Injury or trauma; Fall; Blunt trauma; Toes; Left lesser toe(s) TECHNIQUE: Imaging protocol: Radiologic exam of the left toes. Views: Minimum 2 views. COMPARISON: No relevant prior studies available. FINDINGS: Bones/joints: There is a nondisplaced fracture middle phalanx of the 5th toe. Fracture appears to extend to the D IP joint. No other fracture is identified. Mild degenerative changes are seen in the interphalangeal joints. Soft tissues: There is soft tissue swelling of the 5th toe. Soft tissues are otherwise unremarkable. IMPRESSION: Nondisplaced fracture middle phalanx left 5th toe with associated soft tissue swelling. Dictated and Authenticated by: Dennise Carter MD. Ordering:JEAN-PAUL Braswell MD
== END ==
LOC: DI 12:29
PROVIDERS: PCP Family Medicine
DX: M79.675 Pain in left toe(s) (principal); S92.351A Displaced fracture of fifth metatarsal bone, right foot, initial encounter for closed fracture; X58.XXXA Exposure to other specified factors, initial encounter
CPT/HCPCS: 73660